=== PATIENT | female | born 1965 | race Caucasian/White ===

== ENCOUNTER → 2016-08-28 | Outpatient (CLI) | payer BC ==
--- NOTE | 2016-08-30 10:39 | MM ---
Reason for exam: screening (asymptomatic). Last mammogram was performed 2 years and 1 month ago. History: Patient is postmenopausal and has history of other cancer at age 40. Family history of breast cancer in aunt, breast cancer in sister at age 30, and breast cancer in mother. Took hormonal contraceptives for 5 years beginning at age 15. Physical Findings: A clinical breast exam by your physician is recommended on an annual basis and results should be correlated with mammographic findings. MG 3D Screening Mammo W/Cad Bilateral CC and MLO view(s) were taken. Prior study comparison: July 21, 2014, bilateral MG screening mammo w CAD. August 11, 2012, bilateral digital screening mammo w/CAD. There are scattered fibroglandular densities. There is no discrete abnormality. No significant changes when compared with prior studies. ASSESSMENT: Negative, BI-RAD 1 RECOMMENDATION: Routine screening mammogram of both breasts in 1 year.
== END | disposition home or self-care (01) ==
LOC: RADMAMWWP 14:59
PROVIDERS: ATTEND Family Medicine
DX: Z12.31 Encounter for screening mammogram for malignant neoplasm of breast (principal)
CPT/HCPCS: 77063; G0202

== ENCOUNTER → 2018-08-09 | Outpatient (CLI) | payer BC ==
[2018-08-09 16:58] LABS: ALT 58 U/L (8-44); AST 29 U/L (13-35); Albumin/Globulin Ratio 2.14 (1.60-3.17); Alkaline Phosphatase 102 U/L (41-126); Bilirubin, Conjugated <0.20 mg/dL (0.20-0.40); Globulin 2.1 g/dL (1.6-3.3); Total Bilirubin 0.6 mg/dL (0.2-1.2); Total Protein 6.6 g/dL (6.2-8.2)
== END ==
LOC: LABWHC1 09:17
PROVIDERS: ATTEND Family Medicine
DX: R79.89 Other specified abnormal findings of blood chemistry (principal)
CPT/HCPCS: 36415; 80076

== ENCOUNTER → 2018-11-18 | Outpatient (CLI) | payer BC ==
--- NOTE | 2018-11-20 12:23 | MM ---
Reason for exam: screening (asymptomatic). Last mammogram was performed 2 years and 3 months ago. History: Patient is postmenopausal and has history of other cancer at age 40. Family history of breast cancer in aunt, breast cancer in sister at age 30, and breast cancer in mother. Took hormonal contraceptives for 5 years beginning at age 15. Physical Findings: A clinical breast exam by your physician is recommended on an annual basis and results should be correlated with mammographic findings. MG Screening Mammo w CAD Bilateral CC and MLO view(s) were taken. Prior study comparison: August 28, 2016, bilateral MG 3d screening mammo w/cad. July 21, 2014, bilateral MG screening mammo w CAD. There are scattered fibroglandular densities. Benign appearing bilateral calcifications. No significant changes when compared with prior studies. ASSESSMENT: Benign, BI-RAD 2 RECOMMENDATION: Routine screening mammogram of both breasts in 1 year.
== END | disposition home or self-care (01) ==
LOC: RADMAMWWP 14:29
PROVIDERS: ATTEND Family Medicine
DX: Z12.31 Encounter for screening mammogram for malignant neoplasm of breast (principal); Z80.3 Family history of malignant neoplasm of breast
CPT/HCPCS: 77067

== ENCOUNTER → 2019-03-31 | Outpatient (CLI) | payer BC ==
[2019-03-31 10:33] LABS: Appearance,Urine Clear (Clear); Bilirubin,Urine Negative (Negative); Blood,Urine Trace (Negative); Color,Urine Yellow; Glucose,Urine (UA) Negative (Negative); Ketones,Urine Negative (Negative); Leukocyte Esterase,Urine Moderate (Negative); Mucus,Urine Rare /hpf; Nitrite,Urine Negative (Negative); PH, Urine 5.5 (5.0-8.0); Protein,Urine Negative (Negative); RBC,Urine 1 /hpf (0-5); Specific Gravity,Urine 1.016 (1.001-1.035); Squamous Epithelial Cell,Urine 3 /hpf (0-4); Urobilinogen,Urine <2.0 mg/dL (<2.0); WBC,Urine 2 /hpf (0-5)
[2019-03-31 10:51] LABS: HCT 42.6 % (34.0-46.0); HGB 14.3 gm/dL (11.4-16.0); MCHC 33.6 g/dL (31.0-37.0); MCV 95.1 fL (80.0-100.0); Platelet Count 391 k/uL (150-450); RBC 4.48 m/uL (3.80-5.40); RDW 12.1 % (11.5-15.5)
[2019-03-31 16:35] LABS: African American GFR (CKD) 118.9 (60.0-200.0); Albumin 4.6 g/dL (3.80-4.90); Albumin/Globulin Ratio 2.19 (1.60-3.17); Anion Gap 9.4 mmol/L (4.00-12.00); BUN/Creat Ratio 18.33 Ratio (12.00-20.00); Calcium 9.5 mg/dL (8.7-10.3); Carbon Dioxide 22.6 mmol/L (21.6-31.8); Globulin 2.1 g/dL (1.6-3.3); Non-African American GFR(CKD) 102.6 (60.0-200.0); Phosphorus 3.6 mg/dL (2.4-5.1); Potassium 4.1 mmol/L (3.5-5.5); Total Bilirubin 1.6 mg/dL (0.3-1.2); Total Protein 6.7 g/dL (6.2-8.2)
== END | disposition home or self-care (01) ==
LOC: LABWHC1 09:48
PROVIDERS: ATTEND Orthopaedic Surgery Sports Medicine
DX: M79.671 Pain in right foot (principal); S92.351A Displaced fracture of fifth metatarsal bone, right foot, initial encounter for closed fracture
CPT/HCPCS: 36415; 80053; 81001; 82306; 82310; 82652; 83970; 84100; 85027

== ENCOUNTER → 2019-11-18 | Outpatient (CLI) | payer BC ==
[~2019-11-18] MED LIST: DOBUTamine DRIP for NUC MED 500 MG in DEXTROSE/WATER 1 250ML.BAG IV ONE
--- NOTE | 2019-11-18 14:34 | ECHOS ---
STRESS ECHOCARDIOGRAM LUMASON: Vial INDICATIONS: MEDICATIONS: Metaprolol, Losartan, Lexapro, Nortryptaline, omperazole BASELINE HEART RATE: 64 BASELINE BLOOD PRESSURE: 117/73 MAXIMUM HEART RATE: 142 MAXIMUM BLOOD PRESSURE: 177/45 85% MPHR: 140 100% MPHR: 165 METS: MAXIMUM STAGE REACHED: 4 TOTAL EXERCISE TIME: CLINICAL INFORMATION: Baseline EKG shows sinus rhythm, normal axis, normal intervals. Patient was given intravenous dobutamine over a period of 12.5 minute as per protocol, did not have chest pain or diagnostic ST-segment depression. Patient also received 0.5 mg of atropine due to inability to attain target heart rate. Baseline echo shows normal left ventricular size, wall motion and systolic function. Post dobutamine infusion, there is normal hyperdynamic response of all segments of myocardium noted. CONCLUSION: 1. Negative stress test by EKG criteria. 2. Negative dobutamine stress echo. MMODL / IJN: [id number] /
== END | disposition home or self-care (01) ==
LOC: RADNMMAIN 08:56
PROVIDERS: ATTEND Family Medicine
DX: R07.9 Chest pain, unspecified (principal); I10 Essential (primary) hypertension
CPT/HCPCS: 93351; J1250; Q9950

== ENCOUNTER → 2019-12-23 | Outpatient (CLI) | payer BC ==
--- NOTE | 2019-12-23 14:58 | BD ---
EXAMINATION TYPE: Axial Bone Density DATE OF EXAM: 12/23/2019 COMPARISON: NONE CLINICAL HISTORY: 54 YR OLD FEMALE....ICD-10 CODE: M81.0 OSTERPOROSIS Height: 66 Weight: 216 FRAX RISK QUESTIONS: Family History (Parent hip fracture): NO FX History of Fracture in Adulthood: YES RISK FACTORS HISTORY OF: HX OF RT FOOT FX...2019 Family History of Osteoporosis: YES, FATHER Postmenopausal woman: YES, AT AGE 51....TOTAL HYST Hyperparathyroidism: NO Adrenal Insufficiency: NO MEDICATIONS: Thyroid Medications: YES, SYNTHROID FOR ABOUT 4-5 YRS NOW Additional Medications: BP MEDS, LEXAPRO, WELLBUTRIN, NORTRIPTYLINE FOR COLON, REFLUX MEDS, STATIN FO R CHOLESTEROL, VIT D, Additional History: IBS, HYPERTENSION, REFLUX, CHOLESTEROL EXAM MEASUREMENTS: Bone mineral densitometry was performed using the [employer] [facility]. Bone mineral density as measured about the Lumbar spine is: ----- L1-L4(G/cm2): 1.149 T Score Values are as follows: ----- L1: 0.2 ----- L2: 0.0 ----- L3: -0.2 ----- L4: -1.1 ----- L1-L4: -0.3 Bone mineral density FIRST BONE DENSITY SCAN.......BASELINE STUDY Bone mineral density about the R hip (g/cm2): 0.886 Bone mineral density about the L hip (g/cm2): 0.873 T Score values are as follows: -----R Neck: -1.6 -----L Neck: -1.4 -----R Total: -1.0 -----L Total: -1.1 Bone mineral density BASELINE STUDY FRAX%S: THERE IS A 11.1% CHANCE FOR A MAJOR OSTEOPOROTIC FX AND A 1.1% FOR HIP.....PROBABILITY FOR FX IN 10 YRS TIME IMPRESSION: Osteopenia (T Score between -2.5 and -1). There is slightly increased risk of fracture and the patient may be considered for treatment. Re-Screen 2-5 years. NOTE: T-SCORE=SD OF THE YOUNG ADULT MEAN.
--- NOTE | 2019-12-25 09:54 | MM ---
Reason for exam: screening (asymptomatic). Last mammogram was performed 1 year and 1 month ago. History: Patient is postmenopausal and has history of other cancer at age 40. Family history of breast cancer in mother, breast cancer in sister at age 30, and breast cancer in aunt. Took hormonal contraceptives for 5 years beginning at age 15. Physical Findings: A clinical breast exam by your physician is recommended on an annual basis and results should be correlated with mammographic findings. MG 3D Screening Mammo W/Cad Bilateral CC and MLO view(s) were taken. Prior study comparison: November 18, 2018, bilateral MG screening mammo w CAD. August 28, 2016, bilateral MG 3d screening mammo w/cad. No significant changes when compared with prior studies. ASSESSMENT: Benign, BI-RAD 2 RECOMMENDATION: Routine screening mammogram of both breasts in 1 year.
== END | disposition home or self-care (01) ==
LOC: RADMAMWWP 07:23
PROVIDERS: ATTEND Family Medicine
DX: Z12.31 Encounter for screening mammogram for malignant neoplasm of breast (principal); M85.80 Other specified disorders of bone density and structure, unspecified site; M81.0 Age-related osteoporosis without current pathological fracture; Z80.3 Family history of malignant neoplasm of breast
CPT/HCPCS: 77063; 77067; 77080

== ENCOUNTER → 2020-06-27 | Outpatient (CLI) | payer BC | END | disposition home or self-care (01) | LOC: LABWHC1 17:11 | PROVIDERS: ATTEND Emergency Medicine | DX: Z20.822 Contact with and (suspected) exposure to COVID-19 (principal) | CPT/HCPCS: U0003; C9803 ==

== ENCOUNTER 2020-11-30 07:44 | Day surgery (SDC) | payer BC ==
[2020-11-28 10:56] VITALS: BMI 33.5
[~2020-11-30 07:44] MED LIST changes: -DOBUTamine DRIP for NUC MED 500 MG in DEXTROSE/WATER 1 250ML.BAG IV ONE; +LACTATED RINGERS 1,000 ML IV SCH
[2020-11-30] MEDS ORDERED: LIDOCAINE 1% (10MG/ML) FOR IV START INTRADERMA ONE (08:20)
[2020-11-30 08:24] VITALS: RESP 16; TEMP 96.7
[2020-11-30] MEDS ORDERED: LIDOCAINE 1% INJ 10MG/ML (20 ML MDV) ONE (08:38)
[2020-11-30] MEDS ORDERED: PROPOFOL 10 MG/ML 20 ML VIAL IV ONE (08:38)
--- NOTE | 2020-11-30 09:03 | P.PCN ---
Date of Procedure: 11/30/20 Procedure(s) Performed: Brief history: Patient is a pleasant 55-year-old white female scheduled for an elective upper endoscopy as well as colonoscopy as a part of evaluation of GERD and screening for colorectal neoplasia Procedure performed: Esophagogastroduodenoscopy with biopsy Colonoscopy Preoperative diagnosis: GERD Screening for colon cancer [place] [facility] [place]: After informed consent was obtained from the patient was brought into the endoscopy unit and IV sedation was administered by anesthesia under continuous monitoring. Initially upper endoscopy was done. The Olympus GF 160 video endoscope was inserted inserted into the mouth and esophagus intubated without any difficulty and was gradually advanced into the stomach and duodenum and carefully examined. The bulb and second part of the duodenum appeared normal. The scope was then withdrawn into the stomach adequately insufflated with air and upon careful examination the antrum had mild gastritis and biopsies were done from this area. The body, cardia and fundus appeared normal. The scope was then withdrawn into the esophagus. The GE junction was located at 40 cm to the incisors. It appeared regular with no erythema erosions or ulcerations. Rest of the esophagus appeared normal. biopsies were done from the distal esophagus. Patient tolerated the procedure well. At this time the patient continued to remain sedation. Initial digital rectal examination was normal. Olympus CF 160 video colonoscope was then inserted into the rectum and gradually advanced to the cecum without any difficulty. Careful examination was performed as the scope was gradually being withdrawn. The prep was excellent. The cecum, ascending colon, transverse colon, descending colon, sigmoid colon and rectum appeared normal. Retroflexion was performed in the rectum and no lesions were noted. Patient tolerated the procedure well. Impression: 1. Upper endoscopy revealed mild antral gastritis but no evidence of esophagitis or [place]'s esophagus 2. Colonoscopy was within normal limits with no evidence of colitis or c olorectal neoplasia Recommendations: Findings of this examination were discussed with the patient as well as her family. She was advised to follow with the biopsy results. She will continue with omeprazole 20 mg twice daily and follow antrum reflux measures. She was advised to have a repeat screening colonoscopy in 10 years
[2020-11-30 09:24] VITALS: BP 125/68; PULSE 53
== END 2020-11-30 09:50 | disposition home or self-care (01) ==
LOC: ORWHC2ENDO 07:44
PROVIDERS: ATTEND Internal Medicine Gastroenterology
DX: Z12.11 Encounter for screening for malignant neoplasm of colon (principal); K21.9 Gastro-esophageal reflux disease without esophagitis; K29.50 Unspecified chronic gastritis without bleeding; K22.8 Other specified diseases of esophagus
CPT/HCPCS: 88305; 45378; 43239; J2001; J2704

== ENCOUNTER → 2020-12-20 | Outpatient (CLI) | payer BC ==
[2020-12-20 21:55] LABS: Gliadin AB IgA, Deaminated NEGATIVE (NEGATIVE); Gliadin AB IgA, Unit <0.2 U/mL; Gliadin AB IgG, Deaminated NEGATIVE (NEGATIVE)
== END | disposition home or self-care (01) ==
LOC: LABWHC1 11:01
PROVIDERS: ATTEND Internal Medicine Gastroenterology
DX: R10.13 Epigastric pain (principal)
CPT/HCPCS: 36415; 83516

== ENCOUNTER → 2021-01-13 | Outpatient (CLI) | payer BC ==
--- NOTE | 2021-01-17 10:25 | MM ---
Reason for exam: screening (asymptomatic). Last mammogram was performed 1 year and 1 month ago. History: Patient is postmenopausal and has history of other cancer at age 40. Family history of breast cancer in mother, breast cancer in sister at age 30, and breast cancer in aunt. Took hormonal contraceptives for 5 years beginning at age 15. Physical Findings: A clinical breast exam by your physician is recommended on an annual basis and results should be correlated with mammographic findings. MG 3D Screening Mammo W/Cad Bilateral CC and MLO view(s) were taken. XCCL view(s) were taken of the right breast. Prior study comparison: December 23, 2019, bilateral MG 3d screening mammo w/cad. August 28, 2016, bilateral MG 3d screening mammo w/cad. There are scattered fibroglandular densities. No significant changes when compared with prior studies. ASSESSMENT: Benign, BI-RAD 2 RECOMMENDATION: Routine screening mammogram of both breasts in 1 year.
== END | disposition home or self-care (01) ==
LOC: RADMAMWWP 14:38
PROVIDERS: ATTEND Family Medicine
DX: Z12.31 Encounter for screening mammogram for malignant neoplasm of breast (principal); Z78.0 Asymptomatic menopausal state; Z80.3 Family history of malignant neoplasm of breast
CPT/HCPCS: 77063; 77067

== ENCOUNTER 2022-01-27 11:34 | Emergency (ER) | payer BC ==
[2022-01-27 11:51] VITALS: TEMP 97.5
[2022-01-27] MEDS ORDERED: ALBUTEROL NEBULIZED 2.5 MG/3 ML INHALATION STA (12:09)
[2022-01-27] MEDS ORDERED: IPRATROPIUM 0.5 MG/2.5 ML NEBU INHALATION STA (12:09)
--- NOTE | 2022-01-27 12:16 | ED ---
General Adult HPI - General Chief complaint: Upper Respiratory Infection Stated complaint: SOB, congestion Time Seen by Provider: 01/27/22 11:58 Source: patient Mode of arrival: ambulatory Limitations: no limitations - History of Present Illness Initial comments: Dictation was produced using [employer] dictation software. please excuse any grammatical, word or spelling errors. Chief Complaint: 56-year-old female presents with URI symptoms for 7 days History of Present Illness: 56-year-old female she presents to the emergency department for URI symptoms 7 days. Last week she was seen by her primary care doctor. She has been prescribed Medrol Dosepak and azithromycin. Patient states her symptoms are not improving. Denies any constitutional symptoms. Patient does have shortness of breath and cough. Cough is nonproductive. Denies any COPD. No asthma. She does report recreational marijuana use. She doesn't have any chest pain. The ROS documented in this emergency department record has been reviewed and confirmed by me. Those systems with pertinent positive or negative responses have been documented in the HPI. All other systems are other negative and/or noncontributory. PHYSICAL EXAM: General Impression: Alert and oriented x3, not in acute distress HEENT: Normocephalic atraumatic, extra-ocular movements intact, pupils equal and reactive to light bilaterally, mucous membranes moist. Cardiovascular: Heart regular rate and rhythm Chest: Able to complete full sentences, diffuse lung wheezing Abdomen: abdomen soft, non-tender, non-distended, no organomegaly Musculoskeletal: Pulses present and equal in all extremities, no peripheral edema Motor: no focal deficits noted Neurological: CN II-XII grossly intact, no focal motor or sensory deficits noted Skin: Intact with no visualized rashes Psych: Normal affect and mood ED course: 56-year-old female presents emergency department for cough. She has had URI symptoms for the last 7 days. She has completed a course of azithromycin and is currently on the second half of her Medrol Dosepak. Patient is well-appearing at the bedside she does have wheezing with auscultation to the lungs. Patient does not have established history of COPD or asthma. Concern for acute bronchospastic event. Laboratory evaluation obtained. CBC, metabolic panel is unremarkable. For panel viral PCR is positive for RSV. Chest x-ray is nonacute. Patient given breathing treatment. She does report improvement of breathing treatment. Reevaluated at bedside at 3:10 PM on any stable medical condition. She is ready on Medrol Dosepak. Patient be given some nebulizer albuterol to take at home. Patient agreeable for discharge. Advised follow-up with primary care doctor. - Related Data Home Medications Medication Instructions Recorded Confirmed Atorvastatin [Lipitor] 20 mg PO BID 11/28/20 11/28/20 Cetirizine HCl [Zyrtec] 10 mg PO DAILY PRN 11/28/20 11/28/20 Docusate Sodium [Dok] 200 mg PO HS 11/28/20 11/28/20 Ergocalciferol [Vitamin D2 (1250 1,250 mcg PO MO 11/28/20 11/28/20 Mcg = 49036 Iu)] Escitalopram [Lexapro] 10 mg PO DAILY 11/28/20 11/28/20 Ibuprofen [Motrin Ib] 400 mg PO Q8H PRN 11/28/20 11/28/20 Levothyroxine Sodium [Synthroid] 25 mcg PO DAILY 11/28/20 11/28/20 Losartan [Cozaar] 25 mg PO HS 11/28/20 11/28/20 Metoprolol Tartrate [Lopressor] 25 mg PO BID 11/28/20 11/28/20 Nortriptyline [Pamelor] 50 mg PO DAILY 11/28/20 11/28/20 Omeprazole [PriLOSEC] 20 mg PO AC-BID 11/28/20 11/28/20 buPROPion XL [Wellbutrin XL] 150 mg PO DAILY 11/28/20 11/28/20 busPIRone HCL [Buspar] 7.5 mg PO BID 11/28/20 11/28/20 lysine HCL [l-Lysine] 1,000 mg PO DAILY PRN 11/28/20 11/28/20 Previous Rx's Medication Instructions Recorded Albuterol Nebulized (Conc) 2.5 mg INHALATION Q6H PRN 6 Days 01/27/22 [Ventolin Nebulized (Conc)] #75 ml Allergies Allergy/AdvReac Type Severity Reaction Status Date / Time CYMBALTA Allergy Confusion, Uncoded 01/27/22 11:50 elevated HR, couldn't sit up bandaids AdvReac "if on too Uncoded 01/27/22 11:50 long, will peel skin off" Review of Systems ROS Statement: Those systems with pertinent positive or pertinent negative responses have been documented in the HPI. ROS Other: All systems not noted in ROS Statement are negative. Past Medical History Past Medical History: Asthma, Cancer, GERD/Reflux, Hyperlipidemia, Hypertension, Skin Disorder, Thyroid Disorder Additional Past Medical History / Comment(s): Hx Heart murmur, seasonal asthma. Skin cancer melanoma. IBS, c/o increased GERD, constipation. Eczema. History of Any Multi-Drug Resistant Organisms: None Reported Past Surgical History: Hysterectomy, Orthopedic Surgery, Tubal Ligation Additional Past Surgical History / Comment(s): Partial hysterectomy. Rt foot surg, has 1 screw. Colonoscopy, EGD. Past Anesthesia/Blood Transfusion Reactions: Motion Sickness Additional Past Anesthesia/Blood Transfusion Reaction / Comment(s): After TL throat swelled up, taken to X-ray. Motion sickness as child. Past Psychological History: Anxiety, Depression, Panic Disorder Smoking Status: Former smoker Past Alcohol Use History: None Reported Past Drug Use History: Marijuana - Past Family History Mother Sister(s) Family Medical History: Cancer Additional Family Medical History / Comment(s): breast cancer for both General Exam Limitations: no limitations Course Vital Signs 01/27/22 01/27/22 01/27/22 11:48 12:22 12:35 Temperature 97.5 F L Pulse Rate 96 86 88 Respiratory 20 18 18 Rate Blood Pressure 147/92 O2 Sat by Pulse 99 Oximetry Medical Decision Making - Lab Data Result diagrams: 01/27/22 12:50 01/27/22 12:50 Lab Results 01/27/22 01/27/22 01/27/22 Range/Units 12:50 12:50 12:50 WBC 7.8 (3.8-10.6) k/uL RBC 5.03 (3.80-5.40) m/uL Hgb 16.3 H (11.4-16.0) gm/dL Hct 46.3 H (34.0-46.0) % MCV 92.1 (80.0-100.0) fL MCH 32.4 (25.0-35.0) pg MCHC 35.2 (31.0-37.0) g/dL RDW 12.2 (11.5-15.5) % Plt Count 293 (150-450) k/uL MPV 7.5 Neutrophils % 59 % Lymphocytes % 33 % Monocytes % 5 % Eosinophils % 1 % Basophils % 1 % Neutrophils # 4.6 (1.3-7.7) k/uL Lymphocytes # 2.6 (1.0-4.8) k/uL Monocytes # 0.4 (0-1.0) k/uL Eosinophils # 0.1 (0-0.7) k/uL Basophils # 0.1 (0-0.2) k/uL Sodium 141 (137-145) mmol/L Potassium 3.3 L (3.5-5.1) mmol/L Chloride 105 (98-107) mmol/L Carbon Dioxide 22 (22-30) mmol/L Anion Gap 14 mmol/L BUN 15 (7-17) mg/dL Creatinine 0.70 (0.52-1.04) mg/dL Est GFR (CKD-EPI)AfAm >90 (>60 ml/min/1.73 sqM) Est GFR (CKD-EPI)NonAf >90 (>60 ml/min/1.73 sqM) Glucose 131 H (74-99) mg/dL Calcium 9.5 (8.4-10.2) mg/dL NT-Pro-B Natriuret Pep pg/mL Influenza Type A (PCR) Not Detected (Not Detectd) Influenza Type B (PCR) Not Detected (Not Detectd) RSV (PCR) Detected A (Not Detectd) SARS-CoV-2 (PCR) Not Detected (Not Detectd) 01/27/22 Range/Units 12:50 WBC (3.8-10.6) k/uL RBC (3.80-5.40) m/uL Hgb (11.4-16.0) gm/dL Hct (34.0-46.0) % MCV (80.0-100.0) fL MCH (25.0-35.0) pg MCHC (31.0-37.0) g/dL RDW (11.5-15.5) % Plt Count (150-450) k/uL MPV Neutrophils % % Lymphocytes % % Monocytes % % Eosinophils % % Basophils % % Neutrophils # (1.3-7.7) k/uL Lymphocytes # (1.0-4.8) k/uL Monocytes # (0-1.0) k/uL Eosinophils # (0-0.7) k/uL Basophils # (0-0.2) k/uL Sodium (137-145) mmol/L Potassium (3.5-5.1) mmol/L Chloride (98-107) mmol/L Carbon Dioxide (22-30) mmol/L Anion Gap mmol/L BUN (7-17) mg/dL Creatinine (0.52-1.04) mg/dL Est GFR (CKD-EPI)AfAm (>60 ml/min/1.73 sqM) Est GFR (CKD-EPI)NonAf (>60 ml/min/1.73 sqM) Glucose (74-99) mg/dL Calcium (8.4-10.2) mg/dL NT-Pro-B Natriuret Pep 57 pg/mL Influenza Type A (PCR) (Not Detectd) Influenza Type B (PCR) (Not Detectd) RSV (PCR) (Not Detectd) SARS-CoV-2 (PCR) (Not Detectd) Disposition Clinical Impression: RSV (acute bronchiolitis due to respiratory syncytial virus) Disposition: HOME SELF-CARE Condition: Fair Instructions (If sedation given, give patient instructions): Respiratory Syncytial Virus (ED) Prescriptions: Albuterol Nebulized (Conc) [Ventolin Nebulized (Conc)] 2.5 mg INHALATION Q6H PRN 6 Days #75 ml PRN Reason: Wheezing Is patient prescribed a controlled substance at d/c from ED?: No Referrals: Karen Fleming MD [Primary Care Provider] - 1-2 days Time of Disposition: 15:13
[2022-01-27 12:26] VITALS: RESP 18
[2022-01-27 13:06] LABS: Basophils # (A) 0.1 k/uL (0-0.2); Basophils % (A) 1 %; Eosinophils # (A) 0.1 k/uL (0-0.7); Eosinophils % (A) 1 %; HCT 46.3 % (34.0-46.0); HGB 16.3 gm/dL (11.4-16.0); Lymphocytes # (A) 2.6 k/uL (1.0-4.8); Lymphocytes % (A) 33 %; MCH 32.4 pg (25.0-35.0); MCHC 35.2 g/dL (31.0-37.0); MCV 92.1 fL (80.0-100.0); Mean Platelet Volume 7.5; Monocytes # (A) 0.4 k/uL (0-1.0); Monocytes % (A) 5 %; Neutrophils # (A) 4.6 k/uL (1.3-7.7); Neutrophils % (A) 59 %; Platelet Count 293 k/uL (150-450); RBC 5.03 m/uL (3.80-5.40); RDW 12.2 % (11.5-15.5); WBC 7.8 k/uL (3.8-10.6)
--- NOTE | 2022-01-27 13:09 | XR ---
EXAMINATION TYPE: XR chest 2V DATE OF EXAM: 01/27/2022 COMPARISON: Chest x-ray June 09, 2021 HISTORY: Cough and wheeze and congestion. TECHNIQUE: Frontal and lateral views of the chest are obtained. FINDINGS: Mild underlying emphysematous change. Redemonstrated. There is no suspicious new focal air space opacity, pleural effusion, or pneumothorax seen. The cardiac silhouette size is stable and wi thin normal limits. The osseous structures are intact. IMPRESSION: No acute cardiopulmonary process. No significant change from prior.
[2022-01-27 13:14] LABS: African American GFR (CKD) >90 (>60 ml/min/1.73 sqM); Anion Gap 14 mmol/L; Blood Urea Nitrogen 15 mg/dL (7-17); Calcium 9.5 mg/dL (8.4-10.2); Carbon Dioxide 22 mmol/L (22-30); Chloride 105 mmol/L (98-107); Glucose 131 mg/dL (74-99); Non-African American GFR(CKD) >90 (>60 ml/min/1.73 sqM); Potassium 3.3 mmol/L (3.5-5.1); Sodium 141 mmol/L (137-145)
[2022-01-27 15:29] VITALS: BP 143/66; PULSE 83
== END 2022-01-27 15:33 | disposition home or self-care (01) ==
LOC: EC 11:34
DX: J21.0 Acute bronchiolitis due to respiratory syncytial virus (principal); J45.909 Unspecified asthma, uncomplicated; E78.5 Hyperlipidemia, unspecified; I10 Essential (primary) hypertension; K21.9 Gastro-esophageal reflux disease without esophagitis; Z79.899 Other long term (current) drug therapy; Z87.891 Personal history of nicotine dependence; Z20.822 Contact with and (suspected) exposure to COVID-19; Z88.8 Allergy status to other drugs, medicaments and biological substances
CPT/HCPCS: 36415; 71046; 80048; 83880; 85025; 87636; 94640; 99285

== ENCOUNTER 2022-01-31 04:44 | Emergency (ER) | payer BC ==
[2022-01-31] MEDS ORDERED: SODIUM CHLORIDE 0.9% 1,000 ML IV STA (05:36)
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
[2022-01-31 06:05] LABS: Basophils # (A) 0.1 k/uL (0-0.2); Basophils % (A) 1 %; Eosinophils # (A) 0.2 k/uL (0-0.7); Eosinophils % (A) 2 %; HCT 46.3 % (34.0-46.0); HGB 16.1 gm/dL (11.4-16.0); Lymphocytes # (A) 3.1 k/uL (1.0-4.8); Lymphocytes % (A) 42 %; MCH 31.9 pg (25.0-35.0); MCHC 34.8 g/dL (31.0-37.0); MCV 91.8 fL (80.0-100.0); Mean Platelet Volume 7.8; Monocytes # (A) 0.3 k/uL (0-1.0); Monocytes % (A) 4 %; Neutrophils # (A) 3.5 k/uL (1.3-7.7); Neutrophils % (A) 47 %; Platelet Count 381 k/uL (150-450); RBC 5.05 m/uL (3.80-5.40); RDW 12.2 % (11.5-15.5); WBC 7.4 k/uL (3.8-10.6)
[2022-01-31 06:15] LABS: ALT 52 U/L (4-34); AST 34 U/L (14-36); African American GFR (CKD) >90 (>60 ml/min/1.73 sqM); Albumin 4.2 g/dL (3.5-5.0); Alkaline Phosphatase 101 U/L (38-126); Anion Gap 12 mmol/L; Blood Urea Nitrogen 13 mg/dL (7-17); Calcium 9.2 mg/dL (8.4-10.2); Carbon Dioxide 22 mmol/L (22-30); Chloride 105 mmol/L (98-107); Glucose 116 mg/dL (74-99); Magnesium 1.5 mg/dL (1.6-2.3); Non-African American GFR(CKD) >90 (>60 ml/min/1.73 sqM); Potassium 3.7 mmol/L (3.5-5.1); Sodium 139 mmol/L (137-145); Total Bilirubin 1.6 mg/dL (0.2-1.3)
[2022-01-31 06:18] LABS: Partial Thromboplastin Time 24.1 sec (22.0-30.0); Prothrombin Time 11.2 sec (9.0-12.0)
[2022-01-31 06:19] LABS: Appearance,Urine Clear (Clear); Bilirubin,Urine Negative (Negative); Blood,Urine Negative (Negative); Color,Urine Yellow; Glucose,Urine (UA) Negative (Negative); Ketones,Urine Negative (Negative); Leukocyte Esterase,Urine Small (Negative); Mucus,Urine Occasional /hpf; Nitrite,Urine Negative (Negative); PH, Urine 5.5 (5.0-8.0); Protein,Urine Negative (Negative); RBC,Urine <1 /hpf (0-5); Specific Gravity,Urine 1.017 (1.001-1.035); Squamous Epithelial Cell,Urine 1 /hpf (0-4); Urobilinogen,Urine <2.0 mg/dL (<2.0); WBC,Urine 2 /hpf (0-5)
[2022-01-31] MEDS: MAGNESIUM SULFATE-D5W PMX 1 GM in DEXTROSE/WATER 1 100ML.BAG IVPB SCH ×2 (06:53→08:56)
[2022-01-31 09:06] VITALS: BP 191/87; PULSE 71; RESP 18; TEMP 97.5
== END 2022-01-31 09:06 | disposition home or self-care (01) ==
LOC: EC 04:44
DX: J40 Bronchitis, not specified as acute or chronic (principal); E83.42 Hypomagnesemia; I10 Essential (primary) hypertension; K21.9 Gastro-esophageal reflux disease without esophagitis; E78.5 Hyperlipidemia, unspecified; E03.9 Hypothyroidism, unspecified; F41.9 Anxiety disorder, unspecified; F32.A Depression, unspecified; Z87.891 Personal history of nicotine dependence; F12.90 Cannabis use, unspecified, uncomplicated; Z79.51 Long term (current) use of inhaled steroids; Z79.890 Hormone replacement therapy; Z79.83 Long term (current) use of bisphosphonates; Z79.899 Other long term (current) drug therapy; Z88.8 Allergy status to other drugs, medicaments and biological substances
CPT/HCPCS: 36415; 93005; 80053; 84443; 83605; 83735; 84484; 85025; 85610; 85730; 81001; 99284; 96360; J3475

== ENCOUNTER → 2022-04-27 | Outpatient (CLI) | payer BC ==
--- NOTE | 2022-04-30 08:56 | MM ---
Reason for Exam: Screening (asymptomatic). Last mammogram was performed 1 year(s) and 3 month(s) ago. Patient History: Menarche at age 10. First Full-Term at age 18. Left ovary removed at age 50. Right ovary removed at age 50. Hysterectomy at age 50. Postmenopausal. Other cancer, age 40. Hormonal Contraceptives for 5 years from age 15 until age 22. Maternal aunt had breast cancer. Sister had breast cancer, age 30. Mother had breast cancer. Risk Values: Steffany 5 year model risk: 7.0%. NCI Lifetime model risk: 34.1%. Prior Study Comparison: 11/18/2018 Bilateral Screening Mammogram, [facility]. 12/23/2019 Bilateral Screening Mammogram, [facility]. 01/13/2021 Bilateral Screening Mammogram, [facility]. Tissue Density: The breast tissue is heterogeneously dense. This may lower the sensitivity of mammography. Findings: Analyzed By CAD. There is no suspicious group of microcalcifications or new suspicious mass in either breast. Overall Assessment: Negative, BI-RAD 1 Management: Screening Mammogram of both breasts in 1 year. A clinical breast exam by your physician is recommended on an annual basis and results should be correlated with mammographic findings. Electronically signed and approved by: Murtaza Rossi D.O.
== END | disposition home or self-care (01) ==
LOC: RADMAMWWP 14:38
PROVIDERS: ATTEND Family Medicine
DX: Z12.31 Encounter for screening mammogram for malignant neoplasm of breast (principal); Z78.0 Asymptomatic menopausal state; Z80.3 Family history of malignant neoplasm of breast
CPT/HCPCS: 77063; 77067

== ENCOUNTER 2022-06-25 04:44 | Emergency (ER) | payer BC ==
--- NOTE | 2022-06-25 05:20 | ED ---
General Adult HPI - General Chief complaint: Arrhythmia/Palpitations Stated complaint: Heart Palpitations, High Blood Pressure Time Seen by Provider: 06/25/22 05:02 Source: patient Mode of arrival: ambulatory Limitations: no limitations - History of Present Illness Initial comments: This is a 57-year-old female with a past medical history including "irregular heartbeat" as well as hypertension presents emergency department for palpitations. The patient did state that she woke up today feeling that her heart was beating out of her chest and she was alerted by her FitBit that she had an irregular heartbeat. Because of the sensation of palpitations and the alert, the patient came to the emergency department for further evaluation. On arrival, the patient denied any shortness of breath, chest pain or palpitations currently. The patient did state that she had episodes similar to this in the past where she was diagnosed with a "irregular heartbeat" but denied of any specific diagnosis. The patient denied any acute changes in her diet or any other changes noted. The patient was resting in bed comfortably without any further acute pain or distress. - Related Data Home Medications Medication Instructions Recorded Confirmed Atorvastatin [Lipitor] 20 mg PO BID 11/28/20 11/28/20 Cetirizine HCl [Zyrtec] 10 mg PO DAILY PRN 11/28/20 11/28/20 Docusate Sodium [Dok] 200 mg PO HS 11/28/20 11/28/20 Ergocalciferol [Vitamin D2 (1250 1,250 mcg PO MO 11/28/20 11/28/20 Mcg = 85348 Iu)] Escitalopram [Lexapro] 10 mg PO DAILY 11/28/20 11/28/20 Ibuprofen [Motrin Ib] 400 mg PO Q8H PRN 11/28/20 11/28/20 Levothyroxine Sodium [Synthroid] 25 mcg PO DAILY 11/28/20 11/28/20 Losartan [Cozaar] 25 mg PO HS 11/28/20 11/28/20 Metoprolol Tartrate [Lopressor] 25 mg PO BID 11/28/20 11/28/20 Nortriptyline [Pamelor] 50 mg PO DAILY 11/28/20 11/28/20 Omeprazole [PriLOSEC] 20 mg PO AC-BID 11/28/20 11/28/20 buPROPion XL [Wellbutrin XL] 150 mg PO DAILY 11/28/20 11/28/20 busPIRone HCL [Buspar] 7.5 mg PO BID 11/28/20 11/28/20 lysine HCL [l-Lysine] 1,000 mg PO DAILY PRN 11/28/20 11/28/20 Previous Rx's Medication Instructions Recorded Albuterol Nebulized (Conc) 2.5 mg INHALATION Q6H PRN 6 Days 01/27/22 [Ventolin Nebulized (Conc)] #75 ml Allergies Allergy/AdvReac Type Severity Reaction Status Date / Time CYMBALTA Allergy Confusion, Uncoded 06/25/22 04:55 elevated HR, couldn't sit up bandaids AdvReac "if on too Uncoded 06/25/22 04:55 long, will peel skin off" Review of Systems ROS Statement: Those systems with pertinent positive or pertinent negative responses have been documented in the HPI. ROS Other: All systems not noted in ROS Statement are negative. Past Medical History Past Medical History: Asthma, Cancer, GERD/Reflux, Hyperlipidemia, Hypertension, Skin Disorder, Thyroid Disorder Additional Past Medical History / Comment(s): Hx Heart murmur, seasonal asthma. Skin cancer melanoma. IBS, c/o increased GERD, constipation. Eczema. History of Any Multi-Drug Resistant Organisms: None Reported Past Surgical History: Hysterectomy, Orthopedic Surgery, Tubal Ligation Additional Past Surgical History / Comment(s): Partial hysterectomy. Rt foot surg, has 1 screw. Colonoscopy, EGD. Past Anesthesia/Blood Transfusion Reactions: Motion Sickness Additional Past Anesthesia/Blood Transfusion Reaction / Comment(s): After TL throat swelled up, taken to X-ray. Motion sickness as child. Past Psychological History: Anxiety, Depression, Panic Disorder Smoking Status: Former smoker Past Alcohol Use History: None Reported Past Drug Use History: Marijuana - Past Family History Mother Sister(s) Family Medical History: Cancer Additional Family Medical History / Comment(s): breast cancer for both General Exam Limitations: no limitations General appearance: alert, in no apparent distress Head exam: Present: atraumatic, normocephalic, normal inspection Eye exam: Present: normal appearance, PERRL Pupils: Present: normal accommodation ENT exam: Present: normal exam, normal oropharynx, mucous membranes moist Neck exam: Present: normal inspection, full ROM Respiratory exam: Present: normal lung sounds bilaterally Cardiovascular Exam: Present: regular rate, normal rhythm, normal heart sounds GI/Abdominal exam: Present: soft, normal bowel sounds Extremities exam: Present: normal inspection, full ROM Back exam: Present: normal inspection, full ROM Neurological exam: Present: alert, oriented X3, CN II-XII intact Psychiatric exam: Present: normal affect, normal mood Skin exam: Present: warm, dry Course Vital Signs 06/25/22 06/25/22 06/25/22 04:55 05:20 06:00 Temperature 97.4 F L Pulse Rate 136 H 53 L 60 Respiratory 16 8 L 16 Rate Blood Pressure 126/76 153/62 125/50 O2 Sat by Pulse 100 100 99 Oximetry 06/25/22 06/25/22 07:00 08:42 Temperature 97.7 F Pulse Rate 51 L 54 L Respiratory 16 18 Rate Blood Pressure 116/65 141/66 O2 Sat by Pulse 97 98 Oximetry EKG Findings - EKG Comments: EKG Findings:: An EKG was obtained and was interpreted by myself showing a rate of 60, MD interval 174, QRS duration of 90 and QTC of 414. This EKG showed a normal sinus rhythm with no ST segment elevation or depression noted. Medical Decision Making - Medical Decision Making Was pt. sent in by a medical professional or institution (, PA, [employer], urgent care, hospital, or shelter...) When possible be specific @ -No Did you speak to anyone other than the patient for history (EMS, parent, family, police, friend...)? What history was obtained from this source @ -No Did you review nursing and triage notes (agree or disagree)? Why? @ -I reviewed and agree with nursing and triage notes Were old charts reviewed (outside hosp., previous admission, EMS record, old EKG, old radiological studies, urgent care reports/EKG's, shelter records)? Report findings @ -No old charts were reviewed Differential Diagnosis (chest pain, altered mental status, abdominal pain women, abdominal pain men, vaginal bleeding, weakness, fever, dyspnea, syncope, headache, dizziness, GI bleed, back pain, seizure, CVA, palpatations, mental health)? @ -SVT, palpitations, ACS EKG interpreted by me (3pts min.). @ -As above X-rays interpreted by me (1pt min.). @ -Chest x-ray was obtained and was interpreted by myself showing no acute process. CT interpreted by me (1pt min.). @ -None done U/S interpreted by me (1pt. min.). @ -None done What testing was considered but not performed or refused? (CT, X-rays, U/S, labs)? Why? @ -None What meds were considered but not given or refused? Why? @ -None Did you discuss the management of the patient with other professionals (professionals i.e. , PA, [employer], lab, RT, psych nurse, community mental health social worker, architecture analyst, teacher, eeo officer, skilled nursing case manager)? Give summary @ -No Was smoking cessation discussed for >3mins.? @ -No Was critical care preformed (if so, how long)? @ -No Were there social determinants of health that impacted care today? How? (Homelessness, low income, unemployed, alcoholism, drug addiction, transportation, low edu. Level, literacy, decrease access to med. care, longterm, rehab)? @ -No Was there de-escalation of care discussed even if they declined (Discuss DNR or withdrawal of care, Hospice)? DNR status @ -No What co-morbidities impacted this encounter? (DM, HTN, Smoking, COPD, CAD, Cancer, CVA, ARF, Chemo, Hep., AIDS, mental health diagnosis, sleep apnea, morbid obesity)? @ -Hypertension, "irregular heartbeat" Was patient admitted / discharged? Hospital course, mention meds given and route, prescriptions, significant lab abnormalities, going to OR and other pertinent info. @ -The patient was seen and evaluated in emergency department. Physical exam, the patient was resting in bed without any acute distress. Vital signs admission were stable without any acute distress and the patient had a normal h eart beat. The patient denied of any symptoms on my evaluation. Laboratory, chest x-ray and EKG were obtained. All laboratory workup and chest x-ray and EKG were within normal limits and negative. The patient likely had palpitations, NOS and was stable for discharge home. 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 The patient was agreeable to this and all her questions were answered. The patient was discharged home in stable condition. Undiagnosed new problem with uncertain prognosis? @ -No Drug Therapy requiring intensive monitoring for toxicity (Heparin, Nitro, Insulin, Cardizem)? @ -No Were any procedures done? @ -No Diagnosis/symptom? @ -Palpitations, NOS Acute, or Chronic, or Acute on Chronic? @ -Acute Uncomplicated (without systemic symptoms) or Complicated (systemic symptoms)? @ -Uncomplicated Side effects of treatment? @ -No Exacerbation, Progression, or Severe Exacerbation? @ -No Poses a threat to life or bodily function? How? (Chest pain, USA, LA, pneumonia, PE, COPD, DKA, ARF, appy, cholecystitis, CVA, Diverticulitis, Homicidal, Suicidal, threat to staff... and all critical care pts) @ -No - Lab Data Result diagrams: 06/25/22 05:19 06/25/22 05:19 Lab Results 06/25/22 06/25/22 06/25/22 Range/Units 05:19 05:19 05:19 WBC 5.4 (3.8-10.6) k/uL RBC 4.49 (3.80-5.40) m/uL Hgb 14.4 (11.4-16.0) gm/dL Hct 43.2 (34.0-46.0) % MCV 96.2 (80.0-100.0) fL MCH 32.0 (25.0-35.0) pg MCHC 33.3 (31.0-37.0) g/dL RDW 12.1 (11.5-15.5) % Plt Count 288 (150-450) k/uL MPV 7.2 Neutrophils % 59 % Lymphocytes % 30 % Monocytes % 5 % Eosinophils % 3 % Basophils % 1 % Neutrophils # 3.1 (1.3-7.7) k/uL Lymphocytes # 1.6 (1.0-4.8) k/uL Monocytes # 0.3 (0-1.0) k/uL Eosinophils # 0.2 (0-0.7) k/uL Basophils # 0.0 (0-0.2) k/uL PT 10.9 (9.0-12.0) sec INR 1.0 (<1.2) APTT 24.8 (22.0-30.0) sec Sodium 140 (137-145) mmol/L Potassium 4.0 (3.5-5.1) mmol/L Chloride 109 H (98-107) mmol/L Carbon Dioxide 26 (22-30) mmol/L Anion Gap 5 mmol/L BUN 13 (7-17) mg/dL Creatinine 0.68 (0.52-1.04) mg/dL Est GFR (CKD-EPI)AfAm >90 (>60 ml/min/1.73 sqM) Est GFR (CKD-EPI)NonAf >90 (>60 ml/min/1.73 sqM) Glucose 88 (74-99) mg/dL Calcium 9.4 (8.4-10.2) mg/dL Magnesium 1.6 (1.6-2.3) mg/dL Total Bilirubin 1.4 H (0.2-1.3) mg/dL AST 29 (14-36) U/L ALT 47 H (4-34) U/L Alkaline Phosphatase 84 (38-126) U/L Troponin I (0.000-0.034) ng/mL NT-Pro-B Natriuret Pep pg/mL Total Protein 7.0 (6.3-8.2) g/dL Albumin 4.3 (3.5-5.0) g/dL 06/25/22 06/25/22 Range/Units 05:19 05:19 WBC (3.8-10.6) k/uL RBC (3.80-5.40) m/uL Hgb (11.4-16.0) gm/dL Hct (34.0-46.0) % MCV (80.0-100.0) fL MCH (25.0-35.0) pg MCHC (31.0-37.0) g/dL RDW (11.5-15.5) % Plt Count (150-450) k/uL MPV Neutrophils % % Lymphocytes % % Monocytes % % Eosinophils % % Basophils % % Neutrophils # (1.3-7.7) k/uL Lymphocytes # (1.0-4.8) k/uL Monocytes # (0-1.0) k/uL Eosinophils # (0-0.7) k/uL Basophils # (0-0.2) k/uL PT (9.0-12.0) sec INR (<1.2) APTT (22.0-30.0) sec Sodium (137-145) mmol/L Potassium (3.5-5.1) mmol/L Chloride (98-107) mmol/L Carbon Dioxide (22-30) mmol/L Anion Gap mmol/L BUN (7-17) mg/dL Creatinine (0.52-1.04) mg/dL Est GFR (CKD-EPI)AfAm (>60 ml/min/1.73 sqM) Est GFR (CKD-EPI)NonAf (>60 ml/min/1.73 sqM) Glucose (74-99) mg/dL Calcium (8.4-10.2) mg/dL Magnesium (1.6-2.3) mg/dL Total Bilirubin (0.2-1.3) mg/dL AST (14-36) U/L ALT (4-34) U/L Alkaline Phosphatase (38-126) U/L Troponin I <0.012 (0.000-0.034) ng/mL NT-Pro-B Natriuret Pep 139 pg/mL Total Protein (6.3-8.2) g/dL Albumin (3.5-5.0) g/dL Disposition Clinical Impression: Palpitations Disposition: HOME SELF-CARE Condition: Stable Instructions (If sedation given, give patient instructions): Heart Palpitations (ED) Is patient prescribed a controlled substance at d/c from ED?: No Referrals: Karen Fleming MD [Primary Care Provider] - 1-2 days Zane Arrington MD [STAFF PHYSICIAN] - 1-2 days Time of Disposition: 06:40
--- NOTE | 2022-06-25 05:34 | XR ---
EXAMINATION TYPE: XR chest 2V DATE OF EXAM: 06/25/2022 COMPARISON: 01/27/2022 HISTORY: Chest pain TECHNIQUE: FINDINGS: Heart is normal. Lungs are clear of infiltrate. No heart failure. There are no hilar masses . The bony thorax is intact. There are chest leads. IMPRESSION: No active cardiopulmonary disease. Normal heart. No change
[2022-06-25 05:56] LABS: Basophils % (A) 1 %; Eosinophils # (A) 0.2 k/uL (0-0.7); Eosinophils % (A) 3 %; HCT 43.2 % (34.0-46.0); HGB 14.4 gm/dL (11.4-16.0); Lymphocytes # (A) 1.6 k/uL (1.0-4.8); Lymphocytes % (A) 30 %; MCHC 33.3 g/dL (31.0-37.0); MCV 96.2 fL (80.0-100.0); Mean Platelet Volume 7.2; Monocytes # (A) 0.3 k/uL (0-1.0); Monocytes % (A) 5 %; Neutrophils # (A) 3.1 k/uL (1.3-7.7); Neutrophils % (A) 59 %; Platelet Count 288 k/uL (150-450); RBC 4.49 m/uL (3.80-5.40); RDW 12.1 % (11.5-15.5); WBC 5.4 k/uL (3.8-10.6)
[2022-06-25 06:05] LABS: Partial Thromboplastin Time 24.8 sec (22.0-30.0); Prothrombin Time 10.9 sec (9.0-12.0)
[2022-06-25 06:45] LABS: ALT 47 U/L (4-34); AST 29 U/L (14-36); African American GFR (CKD) >90 (>60 ml/min/1.73 sqM); Albumin 4.3 g/dL (3.5-5.0); Alkaline Phosphatase 84 U/L (38-126); Anion Gap 5 mmol/L; Blood Urea Nitrogen 13 mg/dL (7-17); Calcium 9.4 mg/dL (8.4-10.2); Carbon Dioxide 26 mmol/L (22-30); Chloride 109 mmol/L (98-107); Glucose 88 mg/dL (74-99); Magnesium 1.6 mg/dL (1.6-2.3); Non-African American GFR(CKD) >90 (>60 ml/min/1.73 sqM); Sodium 140 mmol/L (137-145); Total Bilirubin 1.4 mg/dL (0.2-1.3)
[2022-06-25 08:49] VITALS: BP 141/66; PULSE 54; RESP 18; TEMP 97.7
== END 2022-06-25 08:49 | disposition home or self-care (01) ==
LOC: EC 04:44
DX: R00.2 Palpitations (principal); I10 Essential (primary) hypertension; E78.5 Hyperlipidemia, unspecified; J45.909 Unspecified asthma, uncomplicated; K21.9 Gastro-esophageal reflux disease without esophagitis; E07.9 Disorder of thyroid, unspecified; F32.A Depression, unspecified; F41.9 Anxiety disorder, unspecified; F12.90 Cannabis use, unspecified, uncomplicated; Z79.890 Hormone replacement therapy; Z79.899 Other long term (current) drug therapy; Z87.891 Personal history of nicotine dependence; Z88.8 Allergy status to other drugs, medicaments and biological substances
CPT/HCPCS: 36415; 71046; 80053; 83735; 83880; 84484; 85025; 85610; 85730; 93005; 99285

== ENCOUNTER 2022-08-24 06:18 | Emergency (ER) | payer BC ==
--- NOTE | 2022-08-24 07:26 | ED ---
General Adult HPI - General Chief complaint: Recheck/Abnormal Lab/Rx Stated complaint: Hypertension,Light headed, Tingle in arm Time Seen by Provider: 08/24/22 07:00 Source: patient, RN notes reviewed, old records reviewed Mode of arrival: wheelchair Limitations: no limitations - History of Present Illness Initial comments: This is a 57-year-old female who presents emergency Department complaining that she is a little bit of issues with her blood pressure being low. She states she also is quite a bit of anxiety so she gets worked up this occurs. Patient states she has tingling in her left arm that lasted approximately 2 seconds. Patient states she has also had a mild headache this morning. Patient states all of his related to her anxiety. Patient states she's been on for anxiety medications that she took for 30 years for a little while now. Patient denies any fever chills or cough per patient denies any shortness of breath or difficulty breathing. Patient denies any chest pain or pressure. Patient denies this. Patient showed me her blood pressures over the last 10 days and none of them were very high and only 2 had a systolic blood pressure under 100. Patient is not taking her blood pressure prior to taking her meds and sometimes she believes that it's low already and then she takes her medicine it drops. - Related Data Home Medications Medication Instructions Recorded Confirmed Atorvastatin [Lipitor] 20 mg PO BID 11/28/20 11/28/20 Cetirizine HCl [Zyrtec] 10 mg PO DAILY PRN 11/28/20 11/28/20 Docusate Sodium [Dok] 200 mg PO HS 11/28/20 11/28/20 Ergocalciferol [Vitamin D2 (1250 1,250 mcg PO [place] 11/28/20 11/28/20 Mcg = 85356 Iu)] Escitalopram [Lexapro] 10 mg PO DAILY 11/28/20 11/28/20 Ibuprofen [Motrin Ib] 400 mg PO Q8H PRN 11/28/20 11/28/20 Levothyroxine Sodium [Synthroid] 25 mcg PO DAILY 11/28/20 11/28/20 Losartan [Cozaar] 25 mg PO HS 11/28/20 11/28/20 Metoprolol Tartrate [Lopressor] 25 mg PO BID 11/28/20 11/28/20 Nortriptyline [Pamelor] 50 mg PO DAILY 11/28/20 11/28/20 Omeprazole [PriLOSEC] 20 mg PO AC-BID 11/28/20 11/28/20 buPROPion XL [Wellbutrin XL] 150 mg PO DAILY 11/28/20 11/28/20 busPIRone HCL [Buspar] 7.5 mg PO BID 11/28/20 11/28/20 lysine HCL [l-Lysine] 1,000 mg PO DAILY PRN 11/28/20 11/28/20 Previous Rx's Medication Instructions Recorded Albuterol Nebulized (Conc) 2.5 mg INHALATION Q6H PRN 6 Days 01/27/22 [Ventolin Nebulized (Conc)] #75 ml Allergies Allergy/AdvReac Type Severity Reaction Status Date / Time CYMBALTA Allergy Confusion, Uncoded 08/24/22 06:39 elevated HR, couldn't sit up bandaids AdvReac "if on too Uncoded 08/24/22 06:39 long, will peel skin off" Review of Systems ROS Statement: Those systems with pertinent positive or pertinent negative responses have been documented in the HPI. ROS Other: All systems not noted in ROS Statement are negative. Past Medical History Past Medical History: Asthma, Cancer, GERD/Reflux, Hyperlipidemia, Hypertension, Skin Disorder, Thyroid Disorder Additional Past Medical History / Comment(s): Hx Heart murmur, seasonal asthma. Skin cancer melanoma. IBS, c/o increased GERD, constipation. Eczema. RSV History of Any Multi-Drug Resistant Organisms: None Reported Past Surgical History: Hysterectomy, Orthopedic Surgery, Tubal Ligation Additional Past Surgical History / Comment(s): Partial hysterectomy. Rt foot surg, has 1 screw. Colonoscopy, EGD. Past Anesthesia/Blood Transfusion Reactions: Motion Sickness Additional Past Anesthesia/Blood Transfusion Reaction / Comment(s): After TL throat swelled up, taken to X-ray. Motion sickness as child. Past Psychological History: Anxiety, Depression, Panic Disorder Smoking Status: Former smoker Past Alcohol Use History: None Reported Past Drug Use History: Marijuana - Past Family History Mother Sister(s) Family Medical History: Cancer Additional Family Medical History / Comment(s): breast cancer for both General Exam - General Exam Comments Initial Comments: GENERAL: Patient is well-developed and well-nourished. Patient is nontoxic and well- hydrated and is in no acute distress. ENT: Neck is soft and supple. No significant lymphadenopathy is noted. Oropharynx is clear. Moist mucous membranes. Neck has full range of motion without eliciting any pain. EYES: The sclera were anicteric and conjunctiva were pink and moist. Extraocular movements were intact and pupils were equal round and reactive to light. Eyelids were unremarkable. PULMONARY: Unlabored respirations. Good breath sounds bilaterally. No audible rales rhonchi or wheezing was noted. CARDIOVASCULAR: There is a regular rate and rhythm without any murmurs gallops or rubs. ABDOMEN: Soft and nontender with normal bowel sounds. SKIN: Skin is clear with no lesions or rashes and otherwise unremarkable. NEUROLOGIC: Patient is alert and oriented x3. Cranial nerves II through XII are grossly intact. Motor and sensory are also intact. Normal speech, volume and content. Symmetrical smile. MUSCULOSKELETAL: Normal extremities with adequate strength and full range of motion. LYMPHATICS: No significant lymphadenopathy is noted PSYCHIATRIC: Mild anxiety Limitations: no limitations Course Vital Signs 08/24/22 06:39 Temperature 98.0 F Pulse Rate 60 Respiratory 16 Rate Blood Pressure 112/57 O2 Sat by Pulse 100 Oximetry Medical Decision Making - Medical Decision Making EKG shows sinus bradycardia 53 bpm [place] interval 268 QRSs 85 Q-T intervals 07/26/1989 QTC is 413. Patient's EKG shows no ST segment elevation or depression patient has T-wave inversions in leads 3 and aVF as well as Q waves in 3 Was pt. sent in by a medical professional or institution (, PA, AGRICULTURAL PLOW OPERATOR, urgent care, hospital, or jail...) When possible be specific @ -No Did you speak to anyone other than the patient for history (EMS, parent, family, police, friend...)? What history was obtained from this source @ -No Did you review nursing and triage notes (agree or disagree)? Why? @ -I reviewed and agree with nursing and triage notes Were old charts reviewed (outside hosp., previous admission, EMS record, old EKG, old radiological studies, urgent care reports/EKG's, jail records)? Report findings @ -I reviewed prior EKGs prior labwork on this patient Differential Diagnosis (chest pain, altered mental status, abdominal pain women, abdominal pain men, vaginal bleeding, weakness, fever, dyspnea, syncope, headache, dizziness, GI bleed, back pain, seizure, CVA, palpatations, mental health, musculoskeletal)? @ -High blood pressure, anxiety, med reaction EKG interpreted by me (3pts min.). @ -As above X-rays interpreted by me (1pt min.). @ -None done CT interpreted by me (1pt min.). @ -None done U/S interpreted by me (1pt. min.). @ -None done What testing was considered but not performed or refused? (CT, X-rays, U/S, labs)? Why? @ -None What meds were considered but not given or refused? Why? @ -None Did you discuss the management of the patient with other professionals (professionals i.e. , PA, AGRICULTURAL PLOW OPERATOR, lab, RT, psych nurse, manager social media, motor generator set operator, teacher, ecological technical officer, disability case manager)? Give summary @ -No Was smoking cessation discussed for >3mins.? @ -No Was critical care preformed (if so, how long)? @ -No Were there social determinants of health that impacted care today? How? (Homelessness, low income, unemployed, alcoholism, drug addiction, transportation, low edu. Level, literacy, decrease access to med. care, group home, rehab)? @ -No Was there de-escalation of care discussed even if they declined (Discuss DNR or withdrawal of care, Hospice)? DNR status @ -No What co-morbidities impacted this encounter? (DM, HTN, Smoking, COPD, CAD, Cancer, CVA, ARF, Chemo, Hep., AIDS, mental health diagnosis, sleep apnea, morbid obesity)? @ -None Was patient admitted / discharged? Hospital course, mention meds given and route, prescriptions, significant lab abnormalities, going to OR and other pertinent info. @ -Patient was not having any symptoms when I initially interviewed her and when I went back and talked to her again she was not having any symptoms. Patient states she'll follow-up with her bench assembler battery to adjust her menstrual started taking her blood pressure readings 4 times a day at the same time and Dr. Jeffrey that the doctor can determine if medications need to be cut back. Undiagnosed new problem with uncertain prognosis? @ -No Drug Therapy requiring intensive monitoring for toxicity (Heparin, Nitro, Insulin, Cardizem)? @ -No Were any procedures done? @ -No Diagnosis/symptom? @ -Anxiety Acute, or Chronic, or Acute on Chronic? @ -Acute Uncomplicated (without systemic symptoms) or Complicated (systemic symptoms)? @ -Uncomplicated Side effects of treatment? @ -No Exacerbation, Progression, or Severe Exacerbation? @ -No Poses a threat to life or bodily function? How? (Chest pain, [place], [place], pneumonia, PE, COPD, DKA, ARF, appy, cholecystitis, CVA, Diverticulitis, Homicidal, Suicidal, threat to staff... and all critical care pts) @ -No Diagnosis/symptom? @ -Low blood pressure Acute, or Chronic, or Acute on Chronic? @ -Acute Uncomplicated (without systemic symptoms) or Complicated (systemic symptoms)? @ -default Side effects of treatment? @ -none Exacerbation, Progression, or Severe Exacerbation] @ -no Poses a threat to life or bodily function? @ -no - Lab Data Result diagrams: 08/24/22 07:02 08/24/22 07:02 Lab Results 08/24/22 08/24/22 08/24/22 Range/Units 07:02 07:02 07:02 WBC 6.1 (3.8-10.6) k/uL RBC 4.33 (3.80-5.40) m/uL Hgb 14.5 (11.4-16.0) gm/dL Hct 41.5 (34.0-46.0) % MCV 95.9 (80.0-100.0) fL MCH 33.6 (25.0-35.0) pg MCHC 35.0 (31.0-37.0) g/dL RDW 11.8 (11.5-15.5) % Plt Count 261 (150-450) k/uL MPV 7.1 Neutrophils % 66 % Lymphocytes % 25 % Monocytes % 4 % Eosinophils % 2 % Basophils % 1 % Neutrophils # 4.0 (1.3-7.7) k/uL Lymphocytes # 1.5 (1.0-4.8) k/uL Monocytes # 0.3 (0-1.0) k/uL Eosinophils # 0.1 (0-0.7) k/uL Basophils # 0.0 (0-0.2) k/uL Sodium 140 (137-145) mmol/L Potassium 3.9 (3.5-5.1) mmol/L Chloride 105 (98-107) mmol/L Carbon Dioxide 25 (22-30) mmol/L Anion Gap 10 mmol/L BUN 17 (7-17) mg/dL Creatinine 0.64 (0.52-1.04) mg/dL Est GFR (CKD-EPI)AfAm >90 (>60 ml/min/1.73 sqM) Est GFR (CKD-EPI)NonAf >90 (>60 ml/min/1.73 sqM) Glucose 77 (74-99) mg/dL Calcium 9.4 (8.4-10.2) mg/dL Magnesium 1.5 L (1.6-2.3) mg/dL Total Bilirubin 1.9 H (0.2-1.3) mg/dL AST 27 (14-36) U/L ALT 39 H (4-34) U/L Alkaline Phosphatase 74 (38-126) U/L Troponin I <0.012 (0.000-0.034) ng/mL Total Protein 7.3 (6.3-8.2) g/dL Albumin 4.5 (3.5-5.0) g/dL Disposition Clinical Impression: Low blood pressure, Anxiety Disposition: HOME SELF-CARE Condition: Good Instructions (If sedation given, give patient instructions): Anxiety (ED) Is patient prescribed a controlled substance at d/c from ED?: No Referrals: Karen Fleming MD [Primary Care Provider] - 1-2 days Time of Disposition: 08:27
[2022-08-24 07:30] LABS: Basophils % (A) 1 %; Eosinophils # (A) 0.1 k/uL (0-0.7); Eosinophils % (A) 2 %; HCT 41.5 % (34.0-46.0); HGB 14.5 gm/dL (11.4-16.0); Lymphocytes # (A) 1.5 k/uL (1.0-4.8); Lymphocytes % (A) 25 %; MCH 33.6 pg (25.0-35.0); MCV 95.9 fL (80.0-100.0); Mean Platelet Volume 7.1; Monocytes # (A) 0.3 k/uL (0-1.0); Monocytes % (A) 4 %; Neutrophils % (A) 66 %; Platelet Count 261 k/uL (150-450); RBC 4.33 m/uL (3.80-5.40); RDW 11.8 % (11.5-15.5); WBC 6.1 k/uL (3.8-10.6)
[2022-08-24 07:43] LABS: ALT 39 U/L (4-34); AST 27 U/L (14-36); African American GFR (CKD) >90 (>60 ml/min/1.73 sqM); Albumin 4.5 g/dL (3.5-5.0); Alkaline Phosphatase 74 U/L (38-126); Anion Gap 10 mmol/L; Blood Urea Nitrogen 17 mg/dL (7-17); Calcium 9.4 mg/dL (8.4-10.2); Carbon Dioxide 25 mmol/L (22-30); Chloride 105 mmol/L (98-107); Glucose 77 mg/dL (74-99); Magnesium 1.5 mg/dL (1.6-2.3); Non-African American GFR(CKD) >90 (>60 ml/min/1.73 sqM); Potassium 3.9 mmol/L (3.5-5.1); Sodium 140 mmol/L (137-145); Total Bilirubin 1.9 mg/dL (0.2-1.3); Total Protein 7.3 g/dL (6.3-8.2)
[2022-08-24 08:49] VITALS: BP 158/72; PULSE 57; RESP 18; TEMP 97.6
== END 2022-08-24 09:00 | disposition home or self-care (01) ==
LOC: EC 06:18
DX: I95.9 Hypotension, unspecified (principal); F41.9 Anxiety disorder, unspecified; J45.909 Unspecified asthma, uncomplicated; K21.9 Gastro-esophageal reflux disease without esophagitis; E78.5 Hyperlipidemia, unspecified; I10 Essential (primary) hypertension; E07.9 Disorder of thyroid, unspecified; F32.A Depression, unspecified; F12.90 Cannabis use, unspecified, uncomplicated; Z87.891 Personal history of nicotine dependence; Z79.890 Hormone replacement therapy; Z79.899 Other long term (current) drug therapy; Z91.09 Other allergy status, other than to drugs and biological substances; Z88.8 Allergy status to other drugs, medicaments and biological substances
CPT/HCPCS: 36415; 80053; 83735; 84484; 85025; 93005; 99284

== ENCOUNTER → 2022-09-08 | Outpatient (CLI) | payer BC ==
[2022-09-08 09:51] LABS: Basophils % (A) 1 %; Eosinophils # (A) 0.1 k/uL (0-0.7); Eosinophils % (A) 3 %; HCT 40.8 % (34.0-46.0); HGB 13.5 gm/dL (11.4-16.0); Lymphocytes # (A) 1.5 k/uL (1.0-4.8); Lymphocytes % (A) 39 %; MCH 32.5 pg (25.0-35.0); MCHC 33.2 g/dL (31.0-37.0); MCV 98.1 fL (80.0-100.0); Mean Platelet Volume 7.2; Monocytes # (A) 0.2 k/uL (0-1.0); Monocytes % (A) 6 %; Neutrophils # (A) 1.9 k/uL (1.3-7.7); Neutrophils % (A) 49 %; Platelet Count 253 k/uL (150-450); RBC 4.16 m/uL (3.80-5.40); WBC 3.8 k/uL (3.8-10.6)
[2022-09-09 09:26] LABS: Estimated Average Glucose 105 mg/dL
[2022-09-09 09:27] LABS: ALT 56 U/L; AST 27 U/L; African American GFR (CKD) >90; Albumin 4.4 d/dL; Alkaline Phosphatase 89 U/L; BUN/Creat Ratio 13.88 Ratio; Blood Urea Nitrogen 11.1 mg/dL; Calcium 9.9 mg/dL; Carbon Dioxide 28.6 mmol/L; Chloride 105 mmol/L; Chol/HDL Ratio 2.13 Ratio; Globulin 2.2 d/dL; Glucose 92 mg/dL; LDL Cholesterol,Calculated 62.1 mg/dL; Potassium 4.3 mmol/L; Sodium 140 mmol/L; Total Bilirubin 1.3 mg/dL; Total Protein 6.6 d/dL
[2022-09-10 10:16] LABS: Non-African American GFR(CKD) 81.7
== END | disposition home or self-care (01) ==
LOC: LABWHC1 08:37
PROVIDERS: ATTEND Nurse Practitioner Family
DX: Z00.00 Encounter for general adult medical examination without abnormal findings (principal); I10 Essential (primary) hypertension; E78.5 Hyperlipidemia, unspecified; E03.9 Hypothyroidism, unspecified
CPT/HCPCS: 36415; 80053; 80061; 82306; 82607; 82746; 83036; 84443; 85025

== ENCOUNTER 2022-10-19 16:19 | Observation (INO) | payer BC ==
[2022-10-19] MEDS ORDERED: NITROGLYCERIN OINT 1 INCH/GM PACKET TOPICAL STA (17:12)
[2022-10-19] MEDS ORDERED: ASPIRIN 81 MG PO STA (17:12)
--- NOTE | 2022-10-19 17:16 | ED ---
General Adult HPI - General Chief complaint: Chest Pain Stated complaint: Chest Pain Time Seen by Provider: 10/19/22 16:51 Source: patient, RN notes reviewed Mode of arrival: ambulatory Limitations: no limitations - History of Present Illness Initial comments: Patient is a pleasant 57-year-old female presenting to the emergency department with concerns for chest discomfort. Patient has had symptoms for months. Patient has seen her fabricator artificial breast for this and believe she may have had a stress test. Discomfort is mild at this time. Patient now is having discomfort daily were previously was intermittent. Discomfort is currently 2/10. Discomfort f eels like indigestion. There is some radiation to the back. Patient does feel a little bit short of breath. - Related Data Home Medications Medication Instructions Recorded Confirmed Ergocalciferol [Vitamin D2 (1250 1,250 mcg PO MAYNARD 11/28/20 10/19/22 Mcg = 84877 Iu)] Levothyroxine Sodium [Synthroid] 25 mcg PO DAILY 11/28/20 10/19/22 Losartan [Cozaar] 25 mg PO BID 11/28/20 10/19/22 Omeprazole [PriLOSEC] 20 mg PO BID 11/28/20 10/19/22 buPROPion XL [Wellbutrin XL] 150 mg PO DAILY 11/28/20 10/19/22 Ashwagandha Root Extract 500 mg PO BID 10/19/22 10/19/22 [Ashwagandha] Atorvastatin [Lipitor] 40 mg PO HS 10/19/22 10/19/22 Linaclotide [Linzess] 72 mcg PO DAILY PRN 10/19/22 10/19/22 busPIRone HCL 15 mg PO BID 10/19/22 10/19/22 Allergies Allergy/AdvReac Type Severity Reaction Status Date / Time minocycline Allergy Unknown Verified 10/19/22 17:53 duloxetine [From Cymbalta] AdvReac Confusion, Verified 10/19/22 17:52 elevated HR, couldn't sit up bandaids AdvReac "if on too Uncoded 10/19/22 17:52 long, will peel skin off" Review of Systems ROS Statement: Those systems with pertinent positive or pertinent negative responses have been documented in the HPI. ROS Other: All systems not noted in ROS Statement are negative. Constitutional: Denies: fever Eyes: Denies: eye pain ENT: Denies: ear pain Respiratory: Reports: as per HPI, dyspnea. Denies: cough Cardiovascular: Reports: as per HPI, chest pain Endocrine: Denies: fatigue Gastrointestinal: Denies: abdominal pain Genitourinary: Denies: dysuria Past Medical History Past Medical History: Asthma, Cancer, GERD/Reflux, Hyperlipidemia, Hypertension, Skin Disorder, Thyroid Disorder Additional Past Medical History / Comment(s): Hx Heart murmur, seasonal asthma. Skin cancer melanoma. IBS, c/o increased GERD, constipation. Eczema. RSV History of Any Multi-Drug Resistant Organisms: None Reported Past Surgical History: Hysterectomy, Orthopedic Surgery, Tubal Ligation Additional Past Surgical History / Comment(s): Partial hysterectomy. Rt foot surg, has 1 screw. Colonoscopy, EGD. Past Anesthesia/Blood Transfusion Reactions: Motion Sickness Additional Past Anesthesia/Blood Transfusion Reaction / Comment(s): After TL throat swelled up, taken to X-ray. Motion sickness as child. Past Psychological History: Anxiety, Depression, Panic Disorder Smoking Status: Former smoker Past Alcohol Use History: None Reported Past Drug Use History: Marijuana - Past Family History Mother Sister(s) Family Medical History: Cancer Additional Family Medical History / Comment(s): breast cancer for both General Exam Limitations: no limitations General appearance: alert, in no apparent distress Head exam: Present: normocephalic Eye exam: Present: normal appearance Neck exam: Present: normal inspection Respiratory exam: Present: normal lung sounds bilaterally. Absent: chest wall tenderness Cardiovascular Exam: Present: regular rate, normal rhythm, systolic murmur (Patient states chronic) Expanded Peripheral pulses: 2+: Radial (R), Radial (L), Dorsalis Pedis (R), Dorsalis Pedis (L) GI/Abdominal exam: Present: soft. Absent: distended, tenderness, guarding, pulsatile mass Extremities exam: Present: normal inspection. Absent: pedal edema, calf tenderness Neurological exam: Present: alert Psychiatric exam: Present: normal affect, normal mood Skin exam: Present: normal color Course Vital Signs 10/19/22 10/19/22 16:41 16:56 Temperature 98.5 F Pulse Rate 84 84 Respiratory 18 18 Rate Blood Pressure 152/69 174/82 O2 Sat by Pulse 100 98 Oximetry EKG Findings - EKG Results: EKG: interpreted by ERMD (Right axis), sinus rhythm, normal QRS, normal ST/T Medical Decision Making - Medical Decision Making Was pt. sent in by a medical professional or institution (, ROBERTO, IMPLEMENTATION DIRECTOR, urgent care, hospital, or fpc...) When possible be specific @ -No Did you speak to anyone other than the patient for history (EMS, parent, family, police, friend...)? What history was obtained from this source @ -No Did you review nursing and triage notes (agree or disagree)? Why? @ -I reviewed and agree with nursing and triage notes Were old charts reviewed (outside hosp., previous admission, EMS record, old EKG, old radiological studies, urgent care reports/EKG's, fpc records)? Report findings @ -No old charts were reviewed Differential Diagnosis (chest pain, altered mental status, abdominal pain women, abdominal pain men, vaginal bleeding, weakness, fever, dyspnea, syncope, headache, dizziness, GI bleed, back pain, seizure, CVA, palpatations, mental he alth, musculoskeletal)? @ -Differential Chest Pain: Stable Angina, Unstable Angina, STEMI, NSTEMI Aortic Dissection, Pneumothorax, Musculoskeletal, Esophageal Spasm GERD, Cholecystitis, Pancreatitis, Zoster, this is not meant to be an all-inclusive list. EKG interpreted by me (3pts min.). @ -As above X-rays interpreted by me (1pt min.). @ -Chest x-ray shows no acute process CT interpreted by me (1pt min.). @ -None done U/S interpreted by me (1pt. min.). @ -None done What testing was considered but not performed or refused? (CT, X-rays, U/S, labs)? Why? @ -None What meds were considered but not given or refused? Why? @ -None Did you discuss the management of the patient with other professionals (professionals i.e. , ROBERTO, IMPLEMENTATION DIRECTOR, lab, RT, psych nurse, high school social studies teacher, medical assistant cardiology, teacher, affirmative action officer, transplant case manager)? Give summary @ -Case was discussed with practitioner Laurita Moeller, who will admit covering hospital call Was smoking cessation discussed for >3mins.? @ -No Was critical care preformed (if so, how long)? @ -No Were there social determinants of health that impacted care today? How? (Homelessness, low income, unemployed, alcoholism, drug addiction, transportation, low edu. Level, literacy, decrease access to med. care, senior living, rehab)? @ -No Was there de-escalation of care discussed even if they declined (Discuss DNR or withdrawal of care, Hospice)? DNR status @ -No What co-morbidities impacted this encounter? (DM, HTN, Smoking, COPD, CAD, Cancer, CVA, ARF, Chemo, Hep., AIDS, mental health diagnosis, sleep apnea, morbid obesity)? @ -None Was patient admitted / discharged? Hospital course, mention meds given and route, prescriptions, significant lab abnormalities, going to OR and other pertinent info. @ -Before meals reevaluated and updated. Patient will be admitted for cardiac Undiagnosed new problem with uncertain prognosis? @ -No Drug Therapy requiring intensive monitoring for toxicity (Heparin, Nitro, Insulin, Cardizem)? @ -No Were any procedures done? @ -No Diagnosis/symptom? @ -Chest pain Acute, or Chronic, or Acute on Chronic? @ -Acute Uncomplicated (without systemic symptoms) or Complicated (systemic symptoms)? @ -default Side effects of treatment? @ -No Exacerbation, Progression, or Severe Exacerbation? @ -No Poses a threat to life or bodily function? How? (Chest pain, [place], [place], pneumonia, PE, COPD, DKA, ARF, appy, cholecystitis, CVA, Diverticulitis, Homicidal, Suicidal, threat to staff... and all critical care pts) @ -No - Lab Data Result diagrams: 10/19/22 17:13 10/19/22 17:13 Lab Results 10/19/22 10/19/22 10/19/22 Range/Units 17:13 17:13 17:13 WBC 6.4 (3.8-10.6) k/uL RBC 4.07 (3.80-5.40) m/uL Hgb 13.5 (11.4-16.0) gm/dL Hct 39.1 (34.0-46.0) % MCV 96.2 (80.0-100.0) fL MCH 33.3 (25.0-35.0) pg MCHC 34.6 (31.0-37.0) g/dL RDW 11.7 (11.5-15.5) % Plt Count 257 (150-450) k/uL MPV 7.2 Neutrophils % 55 % Lymphocytes % 37 % Monocytes % 5 % Eosinophils % 1 % Basophils % 1 % Neutrophils # 3.5 (1.3-7.7) k/uL Lymphocytes # 2.4 (1.0-4.8) k/uL Monocytes # 0.3 (0-1.0) k/uL Eosinophils # 0.1 (0-0.7) k/uL Basophils # 0.0 (0-0.2) k/uL PT 10.8 (9.0-12.0) sec INR 1.0 (<1.2) APTT 24.8 (22.0-30.0) sec D-Dimer <0.17 (<0.60) mg/L FEU Sodium 139 (137-145) mmol/L Potassium 3.6 (3.5-5.1) mmol/L Chloride 103 (98-107) mmol/L Carbon Dioxide 22 (22-30) mmol/L Anion Gap 14 mmol/L BUN 17 (7-17) mg/dL Creatinine 0.63 (0.52-1.04) mg/dL Est GFR (CKD-EPI)AfAm >90 (>60 ml/min/1.73 sqM) Est GFR (CKD-EPI)NonAf >90 (>60 ml/min/1.73 sqM) Glucose 127 H (74-99) mg/dL Calcium 9.5 (8.4-10.2) mg/dL Magnesium 1.5 L (1.6-2.3) mg/dL Total Bilirubin 1.6 H (0.2-1.3) mg/dL AST 32 (14-36) U/L ALT 44 H (4-34) U/L Alkaline Phosphatase 81 (38-126) U/L Troponin I (0.000-0.034) ng/mL NT-Pro-B Natriuret Pep pg/mL Total Protein 7.3 (6.3-8.2) g/dL Albumin 4.4 (3.5-5.0) g/dL Amylase 66 (30-110) U/L Lipase 61 (23-300) U/L 10/19/22 10/19/22 Range/Units 17:13 17:13 WBC (3.8-10.6) k/uL RBC (3.80-5.40) m/uL Hgb (11.4-16.0) gm/dL Hct (34.0-46.0) % MCV (80.0-100.0) fL MCH (25.0-35.0) pg MCHC (31.0-37.0) g/dL RDW (11.5-15.5) % Plt Count (150-450) k/uL MPV Neutrophils % % Lymphocytes % % Monocytes % % Eosinophils % % Basophils % % Neutrophils # (1.3-7.7) k/uL Lymphocytes # (1.0-4.8) k/uL Monocytes # (0-1.0) k/uL Eosinophils # (0-0.7) k/uL Basophils # (0-0.2) k/uL PT (9.0-12.0) sec INR (<1.2) APTT (22.0-30.0) sec D-Dimer (<0.60) mg/L FEU Sodium (137-145) mmol/L Potassium (3.5-5.1) mmol/L Chloride (98-107) mmol/L Carbon Dioxide (22-30) mmol/L Anion Gap mmol/L BUN (7-17) mg/dL Creatinine (0.52-1.04) mg/dL Est GFR (CKD-EPI)AfAm (>60 ml/min/1.73 sqM) Est GFR (CKD-EPI)NonAf (>60 ml/min/1.73 sqM) Glucose (74-99) mg/dL Calcium (8.4-10.2) mg/dL Magnesium (1.6-2.3) mg/dL Total Bilirubin (0.2-1.3) mg/dL AST (14-36) U/L ALT (4-34) U/L Alkaline Phosphatase (38-126) U/L Troponin I <0.012 (0.000-0.034) ng/mL NT-Pro-B Natriuret Pep 31 pg/mL Total Protein (6.3-8.2) g/dL Albumin (3.5-5.0) g/dL Amylase (30-110) U/L Lipase (23-300) U/L Disposition Clinical Impression: Chest pain Disposition: ADMITTED IP TO THIS [facility] Is patient prescribed a controlled substance at d/c from ED?: No Referrals: None,Stated [Primary Care Provider] - 1-2 days Time of Disposition: 18:57
[2022-10-19 17:36] LABS: Basophils % (A) 1 %; Eosinophils # (A) 0.1 k/uL (0-0.7); Eosinophils % (A) 1 %; HCT 39.1 % (34.0-46.0); HGB 13.5 gm/dL (11.4-16.0); Lymphocytes # (A) 2.4 k/uL (1.0-4.8); Lymphocytes % (A) 37 %; MCH 33.3 pg (25.0-35.0); MCHC 34.6 g/dL (31.0-37.0); MCV 96.2 fL (80.0-100.0); Mean Platelet Volume 7.2; Monocytes # (A) 0.3 k/uL (0-1.0); Monocytes % (A) 5 %; Neutrophils # (A) 3.5 k/uL (1.3-7.7); Neutrophils % (A) 55 %; Platelet Count 257 k/uL (150-450); RBC 4.07 m/uL (3.80-5.40); RDW 11.7 % (11.5-15.5); WBC 6.4 k/uL (3.8-10.6)
--- NOTE | 2022-10-19 17:58 | XR ---
EXAMINATION TYPE: XR chest 2V DATE OF EXAM: 10/19/2022 COMPARISON: 06/25/2022 HISTORY: 57-year-old female with chest pain TECHNIQUE: PA and lateral views FINDINGS: The cardiomediastinal silhouette, aorta, and pulmonary vasculature are within normal limits. Hyperinf lation. Lungs and pleural spaces are clear. IMPRESSION: Correlate for underlying COPD. No acute cardiopulmonary process.
[2022-10-19 17:59] LABS: ALT 44 U/L (4-34); AST 32 U/L (14-36); African American GFR (CKD) >90 (>60 ml/min/1.73 sqM); Albumin 4.4 g/dL (3.5-5.0); Alkaline Phosphatase 81 U/L (38-126); Amylase 66 U/L (30-110); Anion Gap 14 mmol/L; Blood Urea Nitrogen 17 mg/dL (7-17); Calcium 9.5 mg/dL (8.4-10.2); Carbon Dioxide 22 mmol/L (22-30); Chloride 103 mmol/L (98-107); Glucose 127 mg/dL (74-99); Lipase 61 U/L (23-300); Magnesium 1.5 mg/dL (1.6-2.3); Non-African American GFR(CKD) >90 (>60 ml/min/1.73 sqM); Potassium 3.6 mmol/L (3.5-5.1); Sodium 139 mmol/L (137-145); Total Bilirubin 1.6 mg/dL (0.2-1.3); Total Protein 7.3 g/dL (6.3-8.2)
[2022-10-19 18:11] LABS: Partial Thromboplastin Time 24.8 sec (22.0-30.0); Prothrombin Time 10.8 sec (9.0-12.0)
[2022-10-19] MEDS ORDERED: NITROGLYCERIN SL TABS 0.4 MG TAB SUBLINGUAL PRN (18:57)
[2022-10-19] MEDS ORDERED: Magnesium Replacement Protocol 1 EACH MISC MISCELLANE PRN (23:03)
[2022-10-19] MEDS ORDERED: ONDANSETRON 4 MG/2 ML VIAL IVP PRN (23:05)
[2022-10-19] MEDS ORDERED: ACETAMINOPHEN TAB 325 MG TAB PO PRN (23:05)
[2022-10-19] MEDS ORDERED: ATORVASTATIN 40 MG TAB PO SCH (23:15)
[2022-10-20] MEDS: busPIRone HCl 5 MG TAB PO SCH ×2 (00:10→09:23)
[2022-10-20] MEDS: MAGNESIUM SULFATE-D5W PMX 1 GM in DEXTROSE/WATER 1 100ML.BAG IVPB SCH ×2 (00:10→01:23)
[2022-10-20] MEDS: PANTOPRAZOLE 40 MG TABLET PO SCH ×2 (00:10→05:49)
[2022-10-20] MEDS: LOSARTAN 25 MG TAB PO SCH ×2 (00:10→09:23)
[2022-10-20] MEDS: NITROGLYCERIN OINT 1 INCH/GM PACKET TOPICAL SCH ×2 (00:24→05:49)
[2022-10-20] MEDS ORDERED: LEVOTHYROXINE 25 MCG TAB PO SCH (06:30)
[2022-10-20] MEDS ORDERED: PANTOPRAZOLE 40 MG TABLET PO SCH (07:30)
[2022-10-20 07:59] VITALS: BP 124/66; PULSE 60; RESP 16; TEMP 98
[2022-10-20] MEDS ORDERED: buPROPion XL 150 MG TAB.ER.24H PO SCH (09:00)
[2022-10-20] MEDS ORDERED: ASPIRIN 81 MG PO SCH (09:00)
[2022-10-20] MEDS ORDERED: HEPARIN SODIUM,PORCINE/PF 5,000 UNIT/0.5 ML SYRINGE SQ SCH (09:00)
[2022-10-20] MEDS ORDERED: ASPIRIN 325 MG TAB PO SCH (09:00)
[2022-10-20 09:34] LABS: Chol/HDL Ratio 2.01 Ratio; LDL Cholesterol,Calculated 53.3 mg/dL (0.0-131.0); Magnesium 2.1 mg/dL (1.5-2.4); VLDL Calculation 7.58 mg/dL (5.00-40.00)
--- NOTE | 2022-10-20 12:18 | P.CRDCN ---
History of Present Illness Consult date: 10/20/22 Requesting physician: Nancy Brannon Reason for Consult (text): Chest pain Chief complaint: Abdominal pain, chest pain, dizziness and shortness of breath History of present illness: This is a pleasant 57-year-old female patient who follows in the office with Dr. Hoskins. She has a history of hypertension and dyslipidemia. Was recently seen in the office by Dr. Hoskins following a Lexiscan MPI which was normal and an echocardiogram with Doppler study last month that showed normal LV systolic fun ction with mild MR and moderate AI. She presented to the emergency department with complaints of abdominal pain as well as chest discomfort varying in location, brief and recurrent over the last several months. Also complaining of some shortness of breath. She quit smoking 10 years ago but has smoked marijuana recently including using of a THC vape pen 2-3 times a day which she has abstained from over the last couple of days. Chest x-ray on admission read as to correlate for COPD. Troponins have been negative 3 EKG is unremarkable. She complains of left lower quadrant discomfort with palpation. Has no current complaints of chest discomfort. Her breathing has improved. She does admit to using the marijuana to help with her anxiety. She's had no edema, orthopnea or PND. She's had no syncope or near syncope. Past Medical History Past Medical History: Asthma, Cancer, GERD/Reflux, Hyperlipidemia, Hypertension, Skin Disorder, Thyroid Disorder Additional Past Medical History / Comment(s): Hx Heart murmur, seasonal asthma. Skin cancer melanoma. IBS, c/o increased GERD, constipation. Eczema. RSV History of Any Multi-Drug Resistant Organisms: None Reported Past Surgical History: Hysterectomy, Orthopedic Surgery, Tubal Ligation Additional Past Surgical History / Comment(s): Partial hysterectomy. Rt foot surg, has 1 screw. Colonoscopy, EGD. Past Anesthesia/Blood Transfusion Reactions: Motion Sickness Additional Past Anesthesia/Blood Transfusion Reaction / Comment(s): After TL throat swelled up, taken to X-ray. Motion sickness as child. Past Psychological History: Anxiety, Depression, Panic Disorder Smoking Status: Former smoker Past Alcohol Use History: None Reported Additional Past Alcohol Use History / Comment(s): Smoked socially 8-9 years, quit 2012. Past Drug Use History: Marijuana Additional Drug Use History / Comment(s): past use only - Past Family History Mother Sister(s) Family Medical History: Cancer Additional Family Medical History / Comment(s): breast cancer for both Medications and Allergies Home Medications Medication Instructions Recorded Confirmed Type Ergocalciferol [Vitamin D2 (1250 1,250 mcg PO MAYNARD 11/28/20 10/19/22 History Mcg = 83478 Iu)] Levothyroxine Sodium [Synthroid] 25 mcg PO DAILY 11/28/20 10/19/22 History Losartan [Cozaar] 25 mg PO BID 11/28/20 10/19/22 History Omeprazole [PriLOSEC] 20 mg PO BID 11/28/20 10/19/22 History buPROPion XL [Wellbutrin XL] 150 mg PO DAILY 11/28/20 10/19/22 History Ashwagandha Root Extract 500 mg PO BID 10/19/22 10/19/22 History [Ashwagandha] Atorvastatin [Lipitor] 40 mg PO HS 10/19/22 10/19/22 History Linaclotide [Linzess] 72 mcg PO DAILY PRN 10/19/22 10/19/22 History busPIRone HCL 15 mg PO BID 10/19/22 10/19/22 History Allergies Allergy/AdvReac Type Severity Reaction Status Date / Time minocycline Allergy Unknown Verified 10/19/22 17:53 duloxetine [From Cymbalta] AdvReac Confusion, Verified 10/19/22 17:52 elevated HR, couldn't sit up bandaids AdvReac "if on too Uncoded 10/19/22 17:52 long, will peel skin off" Physical Exam Vitals: Vital Signs Temp Pulse Pulse Resp BP BP Pulse Ox 10/20/22 11:39 99 10/20/22 07:00 98.0 F 60 16 124/66 99 10/20/22 01:32 66 18 10/20/22 00:24 97.7 F 66 18 113/71 97 10/19/22 21:52 66 18 10/19/22 19:48 70 18 160/85 98 10/19/22 19:20 97.8 F 66 16 147/72 97 10/19/22 16:56 84 18 174/82 98 10/19/22 16:41 98.5 F 84 18 152/69 100 Intake and Output 10/19/22 10/20/22 10/20/22 22:59 06:59 14:59 Other: # Voids 1 2 Weight 65.317 kg PHYSICAL EXAMINATION: This is a 57-year-old female in no apparent distress at the time of my examination. HEENT: Head is atraumatic, normocephalic. Pupils are equal, round. Sclerae anicteric. Conjunctivae are clear. Mucous membranes of the mouth are moist. Neck is supple. There is no elevated jugular venous pressure. No carotid bruit is heard. CHEST EXAMINATION: Lungs reveal diminished air entry bilaterally. No wheezes rales or rhonchi. Respirations even and nonlabored. HEART EXAMINATION: Heart regular, positive S1 and S2. No S3. No S4. The diastolic murmur at the left upper sternal border. ABDOMEN: Soft, mild tenderness to palpation of the left lower quadrant. Bowel sounds are heard. No organomegaly noted. EXTREMITIES: 2+ peripheral pulses with no evidence of peripheral edema and no calf tenderness noted. NEUROLOGIC EXAMINATION: Patient is awake, alert and oriented x3. Results 10/19/22 17:13 10/19/22 17:13 Cardiac Enzymes 10/19/22 10/19/22 10/19/22 Range/Units 17:13 17:13 19:38 AST 32 (14-36) U/L Troponin I <0.012 <0.012 (0.000-0.034) ng/mL 10/19/22 Range/Units 22:10 AST (14-36) U/L Troponin I <0.012 (0.000-0.034) ng/mL Coagulation 10/19/22 Range/Units 17:13 PT 10.8 (9.0-12.0) sec APTT 24.8 (22.0-30.0) sec Lipids 10/20/22 Range/Units 05:34 Triglycerides 37.90 (0.00-149.00) mg/dL Cholesterol 121.00 (0.00-200.00) mg/dL HDL Cholesterol 60.10 H (40.00-60.00) mg/dL Cholesterol/HDL Ratio 2.01 Ratio CBC 10/19/22 Range/Units 17:13 WBC 6.4 (3.8-10.6) k/uL RBC 4.07 (3.80-5.40) m/uL Hgb 13.5 (11.4-16.0) gm/dL Hct 39.1 (34.0-46.0) % Plt Count 257 (150-450) k/uL Comprehensive Metabolic Panel 10/19/22 Range/Units 17:13 Sodium 139 (137-145) mmol/L Potassium 3.6 (3.5-5.1) mmol/L Chloride 103 (98-107) mmol/L Carbon Dioxide 22 (22-30) mmol/L BUN 17 (7-17) mg/dL Creatinine 0.63 (0.52-1.04) mg/dL Glucose 127 H (74-99) mg/dL Calcium 9.5 (8.4-10.2) mg/dL AST 32 (14-36) U/L ALT 44 H (4-34) U/L Alkaline Phosphatase 81 (38-126) U/L Total Protein 7.3 (6.3-8.2) g/dL Albumin 4.4 (3.5-5.0) g/dL Current Medications Generic Name Dose Route Start Last Admin Trade Name Freq PRN Reason Stop Dose Admin Acetaminophen 650 mg 10/19/22 23:05 Acetaminophen Tab 325 Mg Tab PO Q6HR PRN Fever and/ or Pain Aspirin 81 mg 10/20/22 09:00 10/20/22 09:23 Aspirin 81 Mg PO 81 mg DAILY RADHA Administration Atorvastatin Calcium 40 mg 10/19/22 23:15 10/20/22 00:09 Atorvastatin 40 Mg Tab PO 40 mg HS RADHA Administration Bupropion HCl 150 mg 10/20/22 09:00 10/20/22 09:23 Bupropion Xl 150 Mg Tab.Er.24h PO 150 mg DAILY RADHA Administration Buspirone HCl 15 mg 10/19/22 23:15 10/20/22 09:23 Buspirone Hcl 5 Mg Tab PO 15 mg BID RADHA Administration Ergocalciferol 1,250 mcg 10/21/22 09:00 Ergocalciferol 1,250 Mcg (50,000 Iu) Capsule PO MAYNARD RADHA Heparin Sodium (Porcine) 5,000 unit 10/20/22 09:00 10/20/22 09:23 Heparin Sodium,Porcine/Pf 5,000 Unit/0.5 Ml Syringe SQ 5,000 unit Q12HR RADHA Administration Levothyroxine Sodium 25 mcg 10/20/22 06:30 10/20/22 05:49 Levothyroxine 25 Mcg Tab PO 25 mcg DAILY@0630 RADHA Administration Losartan Potassium 25 mg 10/19/22 23:15 10/20/22 09:23 Losartan 25 Mg Tab PO 25 mg BID RADHA Administration Miscellaneous Information 1 each 10/19/22 23:03 Magnesium Replacement Protocol 1 Each Misc MISCELLANE DAILY PRN Per Protocol Protocol Nitroglycerin 0.4 mg 10/19/22 18:57 Nitroglycerin Sl Tabs 0.4 Mg Tab SUBLINGUAL Q5M PRN Chest Pain Ondansetron HCl 4 mg 10/19/22 23:05 Ondansetron 4 Mg/2 Ml Vial IVP Q6HR PRN Nausea And Vomiting Pantoprazole Sodium 40 mg 10/19/22 23:15 10/20/22 05:49 Pantoprazole 40 Mg Tablet PO 40 mg AC-BID RADHA Administration Intake and Output 10/19/22 10/20/22 10/20/22 22:59 06:59 14:59 Other: # Voids 1 2 Weight 65.317 kg 10/19/22 17:13 10/19/22 17:13 EKG Interpretations (text) Sinus rhythm Assessment and Plan Assessment: #1 chest pain, acute coronary event has been ruled out, troponins have been negative 3, EKG shows no evidence of ischemia, patient had normal Lexiscan MPI in August of this year #2 hypertension #3 hyperlipidemia Plan: From cardiology's perspective and acute coronary event has been ruled out. Patient's symptoms are atypical. Recent testing was reviewed, no need for further cardiac workup at this time. She may be discharged home and follow-up with Dr. Arrington as an outpatient. DUMP ATTENDANT note has been reviewed, I agree with a documented findings and plan of care. Patient was seen and examined.
--- NOTE | 2022-10-20 14:05 | P.HPIM ---
History of Present Illness H&P Date: 10/20/22 History of present illness; patient is a 57-year-old lady with past medical hist ory significant for hypothyroidism, hypertension, hyperlipidemia who presented to the ER because of chest pain. Patient stated that she has been having this on and off chest pain for months. Patient states just recently location, radiates to her back, not associated with any shortness of breath. Denies any aggravating or relieving factors associated with this chest pain. patient has seen outpatient cardiology for that and believes that stress test was done. Denies any swelling of feet. Denies any orthopnea or PND. no swelling of feet. because of this chest pain, patient came to the er Initial lab work done in the ER showed WBC 6.4, hemoglobin 13.5, platelet count 257, d-dimer 0.17, sodium 139, potassium 3.6, BUN 17, creatinine 0.63, total bilirubin 1.6, magnesium 1.5 Initial EKG done showed regular rate of 83, no significant depression or elevation, no T-wave inversion seen Chest x-ray done showed no acute cardiac process She admitted to medicine service REVIEW OF SYSTEMS: CONSTITUTIONAL: No fever, no malaise, no fatigue. HEENT: No recent visual problems or hearing problems. Denied any sore throat. CARDIOVASCULAR: As mentioned in HPI PULMONARY: No shortness of breath, no cough, no hemoptysis. GASTROINTESTINAL: No diarrhea, no nausea, no vomiting, no abdominal pain. NEUROLOGICAL: No headaches, no weakness, no numbness. HEMATOLOGICAL: Denies any bleeding or petechiae. GENITOURINARY: Denies any burning micturition, frequency, or urgency. MUSCULOSKELETAL/RHEUMATOLOGICAL: Denies any joint pain, swelling, or any muscle pain. ENDOCRINE: Denies any polyuria or polydipsia. The rest of the 14-point review of systems is negative. PHYSICAL EXAMINATION: GENERAL: The patient is alert and oriented x3, not in any acute distress. Well developed, well nourished. HEENT: Pupils are round and equally reacting to light. EOMI. No scleral icterus. No conjunctival pallor. Normocephalic, atraumatic. No pharyngeal erythema. No thyromegaly. CARDIOVASCULAR: S1 and S2 present. No murmurs, rubs, or gallops. PULMONARY: Chest is clear to auscultation, no wheezing or crackles. ABDOMEN: Soft, nontender, nondistended, normoactive bowel sounds. No palpable organomegaly. MUSCULOSKELETAL: No joint swelling or deformity. EXTREMITIES: No cyanosis, clubbing, or pedal edema. NEUROLOGICAL: Gross neurological examination did not reveal any focal deficits. SKIN: No rashes. Assessment and plan Chest pain Hypomagnesemia Hypertension Hyperlipidemia Monitor vital signs Monitor CBC Monitor CMP Continue telemetry monitoring Trend troponins Daily aspirin, Lipitor, Continue losartan Cardiology consulted Labs and medication were reviewed.. Continue same treatment. Continue with symptomatic treatment. Resume home medication. Monitor labs and vitals. DVT and GI prophylaxis. Further recommendations as per clinical course of the patient Past Medical History Past Medical History: Asthma, Cancer, GERD/Reflux, Hyperlipidemia, Hypertension, Skin Disorder, Thyroid Disorder Additional Past Medical History / Comment(s): Hx Heart murmur, seasonal asthma. Skin cancer melanoma. IBS, c/o increased GERD, constipation. Eczema. RSV History of Any Multi-Drug Resistant Organisms: None Reported Past Surgical History: Hysterectomy, Orthopedic Surgery, Tubal Ligation Additional Past Surgical History / Comment(s): Partial hysterectomy. Rt foot surg, has 1 screw. Colonoscopy, EGD. Past Anesthesia/Blood Transfusion Reactions: Motion Sickness Additional Past Anesthesia/Blood Transfusion Reaction / Comment(s): After TL throat swelled up, taken to X-ray. Motion sickness as child. Past Psychological History: Anxiety, Depression, Panic Disorder Smoking Status: Former smoker Past Alcohol Use History: None Reported Additional Past Alcohol Use History / Comment(s): Smoked socially 8-9 years, quit 2012. Past Drug Use History: Marijuana Additional Drug Use History / Comment(s): past use only - Past Family History Mother Sister(s) Family Medical History: Cancer Additional Family Medical History / Comment(s): breast cancer for both Medications and Allergies Home Medications Medication Instructions Recorded Confirmed Type Ergocalciferol [Vitamin D2 (1250 1,250 mcg PO MAYNARD 11/28/20 10/19/22 History Mcg = 13253 Iu)] Levothyroxine Sodium [Synthroid] 25 mcg PO DAILY 11/28/20 10/19/22 History Losartan [Cozaar] 25 mg PO BID 11/28/20 10/19/22 History Omeprazole [PriLOSEC] 20 mg PO BID 11/28/20 10/19/22 History buPROPion XL [Wellbutrin XL] 150 mg PO DAILY 11/28/20 10/19/22 History Ashwagandha Root Extract 500 mg PO BID 10/19/22 10/19/22 History [Ashwagandha] Atorvastatin [Lipitor] 40 mg PO HS 10/19/22 10/19/22 History Linaclotide [Linzess] 72 mcg PO DAILY PRN 10/19/22 10/19/22 History busPIRone HCL 15 mg PO BID 10/19/22 10/19/22 History Allergies Allergy/AdvReac Type Severity Reaction Status Date / Time minocycline Allergy Unknown Verified 10/19/22 17:53 duloxetine [From Cymbalta] AdvReac Confusion, Verified 10/19/22 17:52 elevated HR, couldn't sit up bandaids AdvReac "if on too Uncoded 10/19/22 17:52 long, will peel skin off" Physical Exam Vitals: Vital Signs Temp Pulse Pulse Resp BP BP Pulse Ox 10/20/22 07:00 98.0 F 60 16 124/66 99 10/20/22 01:32 66 18 10/20/22 00:24 97.7 F 66 18 113/71 97 10/19/22 21:52 66 18 10/19/22 19:48 70 18 160/85 98 10/19/22 19:20 97.8 F 66 16 147/72 97 10/19/22 16:56 84 18 174/82 98 10/19/22 16:41 98.5 F 84 18 152/69 100 Intake and Output 10/19/22 10/20/22 10/20/22 22:59 06:59 14:59 Other: # Voids 1 2 Weight 65.317 kg Results CBC & Chem 7: 10/19/22 17:13 10/19/22 17:13 Labs: Abnormal Lab Results - Last 24 Hours (Table) 10/19/22 Range/Units 17:13 Glucose 127 H (74-99) mg/dL Magnesium 1.5 L (1.6-2.3) mg/dL Total Bilirubin 1.6 H (0.2-1.3) mg/dL ALT 44 H (4-34) U/L Thrombosis Risk Factor Assmnt - Choose All That Apply Any of the Below Risk Factors Present?: Yes Each Factor Represents 1 point: Age 41-60 years, Obesity (BMI >25) Other Risk Factors: No Other congenital or acquired thrombophilia - If yes, enter type in comment: No Thrombosis Risk Factor Assessment Total Risk Factor Score: 2 Thrombosis Risk Factor Assessment Level: Low Risk
--- NOTE | 2022-10-20 14:07 | P.DS ---
Providers Date of admission: 10/19/22 18:57 Expected date of discharge: 10/20/22 Attending physician: Nancy Brannon Consults: 10/19/22 18:57 Consult Physician Urgent Consulting Provider: Domo Hall Consult Reason/Comments: cp Do you want consulting provider notified?: Yes Primary care physician: Stated None Hospital Course: Discharge diagnoses; Chest pain Hypomagnesemia Hypertension Hyperlipidemia Hospital course; patient is a 57-year-old lady with past medical history significant for hypothyroidism, hypertension, hyperlipidemia who presented to the ER because of chest pain. Patient stated that she has been having this on and off chest pain for months. Patient states just recently location, radiates to her back, not associated with any shortness of breath. Denies any aggravating or relieving factors associated with this chest pain. patient has seen outpatient cardiology for that and believes that stress test was done. Denies any swelling of feet. Denies any orthopnea or PND. no swelling of feet. because of this chest pain, patient came to the er Initial lab work done in the ER showed WBC 6.4, hemoglobin 13.5, platelet count 257, d-dimer 0.17, sodium 139, potassium 3.6, BUN 17, creatinine 0.63, total bilirubin 1.6, magnesium 1.5 Initial EKG done showed regular rate of 83, no significant depression or elevation, no T-wave inversion seen Chest x-ray done showed no acute cardiac process She admitted to medicine service 10/20. Cardiology evaluated the patient, patient troponin continue to be flat. Cardiology recommended keeping patient on current cardiac medications. Cleared the patient for discharge PHYSICAL EXAMINATION: GENERAL: The patient is alert and oriented x3, not in any acute distress. Well developed, well nourished. HEENT: Pupils are round and equally reacting to light. EOMI. No scleral icterus. No conjunctival pallor. Normocephalic, atraumatic. No pharyngeal erythema. No thyromegaly. CARDIOVASCULAR: S1 and S2 present. No murmurs, rubs, or gallops. PULMONARY: Chest is clear to auscultation, no wheezing or crackles. ABDOMEN: Soft, nontender, nondistended, normoactive bowel sounds. No palpable organomegaly. MUSCULOSKELETAL: No joint swelling or deformity. EXTREMITIES: No cyanosis, clubbing, or pedal edema. NEUROLOGICAL: Gross neurological examination did not reveal any focal deficits. SKIN: No rashes. Patient Condition at Discharge: Good Plan - Discharge Summary Discharge Rx Participant: No New Discharge Prescriptions: Continue Ergocalciferol [Vitamin D2 (1250 Mcg = 56779 Iu)] 1,250 mcg PO MAYNARD Linaclotide [Linzess] 72 mcg PO DAILY PRN PRN Reason: IBS busPIRone HCL 15 mg PO BID Ashwagandha Root Extract [Ashwagandha] 500 mg PO BID Omeprazole [PriLOSEC] 20 mg PO BID buPROPion XL [Wellbutrin XL] 150 mg PO DAILY Losartan [Cozaar] 25 mg PO BID Levothyroxine Sodium [Synthroid] 25 mcg PO DAILY Atorvastatin [Lipitor] 40 mg PO HS Discharge Medication List Ergocalciferol [Vitamin D2 (1250 Mcg = 81043 Iu)] 1,250 mcg PO MAYNARD 11/28/20 [History] Levothyroxine Sodium [Synthroid] 25 mcg PO DAILY 11/28/20 [History] Losartan [Cozaar] 25 mg PO BID 11/28/20 [History] Omeprazole [PriLOSEC] 20 mg PO BID 11/28/20 [History] buPROPion XL [Wellbutrin XL] 150 mg PO DAILY 11/28/20 [History] Ashwagandha Root Extract [Ashwagandha] 500 mg PO BID 10/19/22 [History] Atorvastatin [Lipitor] 40 mg PO HS 10/19/22 [History] Linaclotide [Linzess] 72 mcg PO DAILY PRN 10/19/22 [History] busPIRone HCL 15 mg PO BID 10/19/22 [History] Follow up Appointment(s)/Referral(s): None,Stated [Primary Care Provider] - 1-2 days Zane Arrington MD [STAFF PHYSICIAN] - 1 Week Discharge Disposition: HOME SELF-CARE
--- NOTE | 2022-10-20 15:12 | CA ---
Transthoracic Echo Report Name: Darryl Mattson Age: 57 Gender: F : 1965 Exam Date: 10/20/2022 08:49 Exam Location: [place] [facility] Ht (in): 68 Wt (lb): 144 Ordering Physician: Annette Cat Attending/Referring Phys: [id number], Stephania Template Checker Hodan Case [facility] Procedure CPT: Indications: Chest Pain Cardiac Hx: Technical Quality: Fair Contrast 1: Total Dose (mL): Contrast 2: Total Dose (mL): MEASUREMENTS (Male / Female) Normal Values 2D ECHO LV Diastolic Diameter PLAX 4.3 cm 4.2 - 5.9 / 3.9 - 5.3 cm LV Systolic Diameter PLAX 2.9 cm IVS Diastolic Thickness 0.7 cm 0.6 - 1.0 / 0.6 - 0.9 cm LVPW Diastolic Thickness 0.9 cm 0.6 - 1.0 / 0.6 - 0.9 cm LV Relative Wall Thickness 0.4 LVOT Diameter 2.0 cm M-MODE Aortic Root Diameter MM 2.4 cm LA Systolic Diameter MM 3.3 cm LA Ao Ratio MM 1.4 AV Cusp Separation MM 1.8 cm DOPPLER AV Peak Velocity 166.6 cm/s AV Peak Gradient 11.1 mmHg AV Mean Velocity 111.4 cm/s AV Mean Gradient 5.6 mmHg AV Velocity Time Integral 40.5 cm AI Peak Velocity 404.1 cm/s AI Peak Gradient 65.3 mmHg AI Pressure Half Time 615.9 ms LVOT Peak Velocity 138.3 cm/s LVOT Peak Gradient 7.7 mmHg LVOT Velocity Time Integral 34.3 cm LVOT Stroke Volume 103.4 cm??? LVOT Stroke Volume Index 58.2 ml/m??? LVOT Cardiac Index 3154.6 cm???/min???m??? AV Area Cont Eq vti 2.6 cm??? AV Area Cont Eq pk 2.5 cm??? Mitral E Point Velocity 109.6 cm/s Mitral A Point Velocity 83.7 cm/s Mitral E to A Ratio 1.3 MV Deceleration Time 195.9 ms LV E' Lateral Velocity 10.7 cm/s Mitral E to LV E' Lateral Ratio 10.3 LV E' Septal Velocity 8.7 cm/s Mitral E to LV E' Septal Ratio 12.6 TR Peak Velocity 173.2 cm/s TR Peak Gradient 12.0 mmHg Right Atrial Pressure 3.0 mmHg Pulmonary Artery Systolic Pressu 15.0 mmHg Right Ventricular Systolic Press 15.0 mmHg FINDINGS Left Ventricle Normal left ventricular size, wall thickness, systolic function with no obvious regional wall motion abnormalities. The ejection fraction is visually estimated at 55-60%. Right Ventricle The right ventricle is normal in size and function. Right Atrium The right atrium is normal in size. Left Atrium The left atrium is normal in size. Mitral Valve Structurally normal mitral valve without significant stenosis or prolapse. Mitral valve mildly thickened. There is trace mitral regurgitation. Aortic Valve Structurally normal aortic valve without significant sclerosis or stenosis. There is moderate aortic regurgitation. Tricuspid Valve Structurally normal tricuspid valve without significant stenosis. Mild tricuspid regurgitation. Pulmonic Valve Structurally normal pulmonic valve without significant stenosis. There is trace pulmonic regurgitation. Pericardium Normal pericardium without effusion. Aorta Normal aortic root dimension. CONCLUSIONS 1. Normal left ventricle size and systolic function 2. Moderate aortic regurgitation 3. Trace mitral and mild tricuspid regurgitation with no evidence of pulmonary hypertension Previewed by: Dr. Domo Hall MD (Electronically Signed) Final Date: 20 October 2022 15:11
[2022-10-21] MEDS ORDERED: ERGOCALCIFEROL 1,250 MCG (50,000 IU) CAPSULE PO SCH (09:00)
== END 2022-10-20 14:30 | disposition home or self-care (01) ==
LOC: EC 16:19 → 6NMEDSUR 18:57
PROVIDERS: ADMIT Hospitalist; ATTEND Hospitalist
DX: R07.89 Other chest pain (principal); E83.42 Hypomagnesemia; I08.3 Combined rheumatic disorders of mitral, aortic and tricuspid valves; J45.998 Other asthma; I10 Essential (primary) hypertension; E78.5 Hyperlipidemia, unspecified; E03.9 Hypothyroidism, unspecified; K21.9 Gastro-esophageal reflux disease without esophagitis; L30.9 Dermatitis, unspecified; K58.9 Irritable bowel syndrome, unspecified; F32.A Depression, unspecified; F41.0 Panic disorder [episodic paroxysmal anxiety]; R10.9 Unspecified abdominal pain; F41.9 Anxiety disorder, unspecified; Z79.890 Hormone replacement therapy; Z79.899 Other long term (current) drug therapy; Z88.1 Allergy status to other antibiotic agents; Z88.8 Allergy status to other drugs, medicaments and biological substances; Z85.820 Personal history of malignant melanoma of skin; Z90.711 Acquired absence of uterus with remaining cervical stump; Z98.890 Other specified postprocedural states; Z87.891 Personal history of nicotine dependence; Z86.19 Personal history of other infectious and parasitic diseases; Z98.51 Tubal ligation status; Z80.3 Family history of malignant neoplasm of breast
CPT/HCPCS: 96365; 96366; 96372; 99285; 36415; 94760; 93005; 93306; 85379; 83880; 80061; 80053; 82150; 83690; 83735 ×2; 84484; 85025; 85610; 85730; 71046; G0378 ×2; J3475; J1644

== ENCOUNTER → 2023-05-04 | Outpatient (CLI) | payer BC ==
[2023-05-04 13:10] LABS: HCT 42.2 % (37.2-46.3); HGB 13.8 g/dL (12.0-15.0); MCH 32.4 pg (27.0-32.0); MCHC 32.7 g/dL (32.0-37.0); MCV 99.1 FL (80.0-97.0); Mean Platelet Volume 8.8 FL (9.5-12.2); NRBC Per 100 WBC 0 X 10*3/uL (0.00-0.01); Platelet Count 232 X 10*3/uL (140-440); RBC 4.26 X 10*6/uL (4.10-5.20); RDW 11.7 % (11.5-14.5); WBC 4.14 X 10*3/uL (4.50-10.00)
[2023-05-04 13:51] LABS: Blood Urea Nitrogen 14.7 mg/dL (9.0-27.0); Carbon Dioxide 27.6 mmol/L (21.6-31.8); Chloride 105 mmol/L (96-109); Potassium 4.1 mmol/L (3.5-5.5); Sodium 141 mmol/L (135-145)
== END | disposition home or self-care (01) ==
LOC: LABWHC1 08:39
PROVIDERS: ATTEND Internal Medicine Interventional Cardiology
DX: Z01.818 Encounter for other preprocedural examination (principal); R07.9 Chest pain, unspecified
CPT/HCPCS: 36415; 80051; 82565; 84520; 85027

== ENCOUNTER → 2023-05-07 | Outpatient (CLI) | payer BC ==
--- NOTE | 2023-05-08 19:59 | MM ---
Reason for Exam: Screening (asymptomatic). Last screening mammogram was performed 12 month(s) ago. Patient History: Menarche at age 10. First Full-Term at age 18. Left ovary removed at age 50. Right ovary removed at age 50. Hysterectomy at age 50. Postmenopausal. Other cancer, age 40. Hormonal Contraceptives for 5 years from age 15 until age 22. Maternal aunt had breast cancer. Sister had breast cancer, age 30. Mother had breast cancer. Risk Values: Jolene 5 year model risk: 7.2%. NCI Lifetime model risk: 33.4%. Prior Study Comparison: 12/23/2019 Bilateral Screening Mammogram, [facility]. 01/13/2021 Bilateral Screening Mammogram, [facility]. 04/27/2022 Bilateral MG 3D screening mammo w/cad, [facility]. Tissue Density: The breast tissue is heterogeneously dense. This may lower the sensitivity of mammography. Findings: Analyzed By CAD. Subareolar nodularity left MLO view appears more defined. This may represent superimposition shadow but further evaluation is recommended. Otherwise, no significant change. Overall Assessment: Incomplete: need additional imaging evaluation, BI-RAD 0 Management: Special View Mammogram of the left breast. Diagnostic Breast Ultrasound of the left breast. Additional views left breast to include spot 3-D MLO and 3-D lateral views. Subsequently, entire left breast ultrasound given dense tissues and patient's risk scores. [facility] will attempt to contact patient to return for supplemental views and ultrasound if indicated. SEE NOTE BELOW IN REGARDS TO PATIENT'S INCREASED FIVE-YEAR JOLENE SCORE AND INCREASED LIFETIME RISK SCORE. Note on Jolene scores and lifetime risk: 1. A Jolene score greater than 3% is considered moderate risk. If this is the case, consider specialist referral to assess eligibility for a risk reducing agent. 2. If overall lifetime risk for the development of breast cancer is 20% or higher, the patient may qualify for future screening with alternating mammogram and breast MRI. Electronically signed and approved by: Maria Del Carmen Fiore M.D. Radiologist
== END | disposition home or self-care (01) ==
LOC: RADMAMWWP 13:58
PROVIDERS: ATTEND Family Medicine
DX: Z12.31 Encounter for screening mammogram for malignant neoplasm of breast (principal); Z80.3 Family history of malignant neoplasm of breast; Z78.0 Asymptomatic menopausal state
CPT/HCPCS: 77063; 77067

== ENCOUNTER 2023-05-09 05:57 | Day surgery (SDC) | payer BC ==
[2023-05-03 15:18] VITALS: BMI 20.5
[2023-05-09] MEDS ORDERED: NITROGLYCERIN SL TABS 0.4 MG TAB SUBLINGUAL PRN (05:58)
[2023-05-09] MEDS ORDERED: SODIUM CHLORIDE 0.9% 1,000 ML in EMPTY BAG 1 BAG IV SCH (05:58)
[2023-05-09] MEDS ORDERED: ALPRAZolam 0.5 MG TAB PO PRN (05:58)
[2023-05-09] MEDS ORDERED: ALPRAZolam 0.25 MG TAB PO PRN (05:58)
[2023-05-09] MEDS ORDERED: ASPIRIN 325 MG TAB PO ONE (07:00)
[2023-05-09] MEDS ORDERED: ATORVASTATIN 80 MG TAB PO ONE (07:00)
[2023-05-09] MEDS ORDERED: HEPARIN SODIUM,PORCINE 10,000 UNIT in SODIUM CHLORIDE 0.9% 1,000 ML IRRIGATION PRN (07:00)
[2023-05-09] MEDS ORDERED: HEPARIN SODIUM,PORCINE (1 ML) 2,500 UNIT in SODIUM CHLORIDE 0.9% 250 ML IRRIGATION PRN (07:00)
[2023-05-09 07:11] VITALS: RESP 18; TEMP 97.7
[2023-05-09] MEDS ORDERED: LIDOCAINE 1% INJ 10MG/ML (20 ML MDV) ONE (07:14)
[2023-05-09] MEDS ORDERED: HEPARIN SODIUM 1,000 UN/ML (10ML VL) ONE (07:15)
[2023-05-09] MEDS ORDERED: VERAPAMIL 2.5 MG/ML 2 ML AMP ONE (07:15)
[2023-05-09] MEDS ORDERED: VERAPAMIL SYRINGE (5 MG/10 ML) INTRAARTER ONE (07:53)
[2023-05-09] MEDS ORDERED: LIDOCAINE 1% INJ 10MG/ML (20 ML MDV) SQ ONE (07:54)
[2023-05-09] MEDS ORDERED: MIDAZOLAM 2 MG/2 ML VIAL IVP ONE (07:54)
[2023-05-09] MEDS ORDERED: HEPARIN SODIUM 1,000 UN/ML (10ML VL) IVP ONE (07:59)
[2023-05-09] MEDS ORDERED: IOPAMIDOL-370 100ML BTL INJ ONE (08:04)
[2023-05-09] MEDS ORDERED: RX INFO: IV CONTRAST WAS GIVEN 1 EACH MISC MISCELLANE PRN (08:08)
--- NOTE | 2023-05-09 08:11 | P.PCN ---
Date of Procedure: 05/09/23 Operative Findings: CARDIAC CATHETERIZATION PERFORMING PHYSICIAN: Zane Arrington MD, RPVI PROCEDURE PERFORMED: 1. Selective right and left coronary angiogram 2. Left heart catheterization 3. Ultrasound-guided access of the right radial artery INDICATION: Chest discomfort concerning for angina COMPLICATION: None APPROACH: Right radial artery LEVEL OF SEDATION: Moderate with a sedation length of 12 minutes PROCEDURE DESCRIPTION: After obtaining an informed consent, the patient was brought to cardiac pit laborer. Local anesthesia was performed using lidocaine subcutaneously. The right radial artery was cannulated using Seldinger technique, the guidewire passed easily, following that we advanced a 5-[place] sheath dilator assembly, the wire and dilator were removed and sheath was flushed. Following that, 2 mg of verapamil along with 3000 unit heparin were given. Selective right and left coronary angiogram using a 6-[place] JR4 and JL 3.5 catheters. Following that we did left heart catheterization using the JR4 catheter. The procedure was completed there was no complication. SELECTIVE CORONARY ANGIOGRAM: The right coronary artery: Large-caliber vessel and nondominant vessel and appeared to be normal Left main: Is angiographically normal The left circumflex: Large-caliber vessel and a dominant vessel. The ostial circumflex has mild disease only. Gives rise into a large OM branch which appeared to be normal and distally bifurcates into PDA and PLV branches both appears to be normal The left anterior descending artery: Large-caliber vessel. Its angiographically normal. It gives rise to multiple diagonal branches appears to be angiographically normal HEMODYNAMICS: The LVEDP was 12 mmHg was no significant gradient across aortic valve CONCLUSION: 1. Mild coronary artery disease 2. Normal left-sided filling pressure POSTPROCEDURE MANAGEMENT: Medical treatment
[2023-05-09] MEDS ORDERED: SODIUM CHLORIDE 0.9% 1,000 ML IV SCH (08:15)
[2023-05-09 11:18] VITALS: BP 87/49; PULSE 52
== END 2023-05-09 11:56 | disposition home or self-care (01) ==
LOC: CATHCVL 05:57
PROVIDERS: ATTEND Internal Medicine Interventional Cardiology
DX: I25.10 Atherosclerotic heart disease of native coronary artery without angina pectoris (principal); I10 Essential (primary) hypertension; E78.5 Hyperlipidemia, unspecified; F17.210 Nicotine dependence, cigarettes, uncomplicated; F12.90 Cannabis use, unspecified, uncomplicated; Z82.49 Family history of ischemic heart disease and other diseases of the circulatory system; Z79.899 Other long term (current) drug therapy
CPT/HCPCS: 93458; 76937; C1769; C1894; J2250; J2001; J1644; Q9967

== ENCOUNTER → 2023-05-14 | Outpatient (CLI) | payer BC ==
--- NOTE | 2023-05-16 09:16 | MM ---
Reason for Exam: Additional evaluation requested from abnormal screening. Last screening mammogram was performed less than 1 month ago. Patient History: Menarche at age 10. First Full-Term at age 18. Left ovary removed at age 50. Right ovary removed at age 50. Hysterectomy at age 50. Postmenopausal. Other cancer, age 40. Hormonal Contraceptives for 5 years from age 15 until age 22. Maternal aunt had breast cancer. Sister had breast cancer, age 30. Mother had breast cancer. Risk Values: Steffany 5 year model risk: 7.2%. NCI Lifetime model risk: 33.4%. Prior Study Comparison: 01/13/2021 Bilateral Screening Mammogram, [facility]. 04/27/2022 Bilateral MG 3D screening mammo w/cad, [facility]. 05/07/2023 Bilateral MG 3D screening mammo w/cad, [facility]. Tissue Density: Left: The breast tissue is heterogeneously dense. This may lower the sensitivity of mammography. Findings: Analyzed By CAD. No distinct mass or distortion. No suspicious calcifications. Overall Assessment: Benign, BI-RAD 2 Management: Screening Mammogram of both breasts in 1 year. . Results were given to the patient verbally at the time of exam. Patient should continue monthly self-breast exams. A clinical breast exam by your physician is recommended on an annual basis. This exam should not preclude additional follow-up of suspicious palpable abnormalities. Note on Steffany scores and lifetime risk: 1. A Steffany score greater than 3% is considered moderate risk. If this is the case, consider specialist referral to assess eligibility for a risk reducing agent. 2. If overall lifetime risk for the development of breast cancer is 20% or higher, the patient may qualify for future screening with alternating mammogram and breast MRI. Electronically signed and approved by: Otoniel Monroe M.D. Radiologis
== END | disposition home or self-care (01) ==
LOC: RADMAMWWP 13:51
PROVIDERS: ATTEND Family Medicine
DX: R92.332 Mammographic heterogeneous density, left breast (principal); Z80.3 Family history of malignant neoplasm of breast; Z78.0 Asymptomatic menopausal state
CPT/HCPCS: 77061; 77065

== ENCOUNTER 2023-06-27 00:12 | Emergency (ER) | payer BC ==
--- NOTE | 2023-06-27 00:33 | ED ---
Abdominal Pain HPI - General Chief Complaint: Abdominal Pain Stated Complaint: IBS abd pain Time Seen by Provider: 06/27/23 00:22 Source: patient Mode of arrival: ambulatory - History of Present Illness Initial Comments: 58-year-old female present with chief complaint of abdominal pain. Patient has history of IBS. She states that on Saturday she was experiencing some constipation, she took bisacodyl and then had diarrhea. 2 try to combat the diarrhea the patient took dicyclomine, states that since then she has had cramping abdominal pain. This has been ongoing since yesterday at 7 PM. She admits to some nausea, no vomiting. No hematochezia or melena. No dysuria, hematuria, flank pain. No fevers or chills. No chest pain or difficulty breathing. - Related Data Home Medications Medication Instructions Recorded Confirmed Ergocalciferol [Vitamin D2 (1250 1,250 mcg PO MAYNARD 11/28/20 05/09/23 Mcg = 88392 Iu)] Levothyroxine Sodium [Synthroid] 25 mcg PO DAILY 11/28/20 05/09/23 Losartan [Cozaar] 25 mg PO BID 11/28/20 05/09/23 Omeprazole [PriLOSEC] 20 mg PO BID 11/28/20 05/09/23 buPROPion XL [Wellbutrin XL] 150 mg PO DAILY 11/28/20 05/09/23 Atorvastatin [Lipitor] 40 mg PO HS 10/19/22 05/09/23 busPIRone HCL 15 mg PO BID 10/19/22 05/09/23 Clindamycin Phosphate [Cleocin T 1 applic TOPICAL BID 05/03/23 05/09/23 1%] Dicyclomine [Bentyl] 20 mg PO QID PRN 05/03/23 05/09/23 Fexofenadine HCl 180 mg PO DAILY 05/03/23 05/09/23 Hydrocortisone Cream 1 applic TOPICAL DAILY 05/03/23 05/09/23 [Hydrocortisone 2.5% Cream] Magnesium Citrate and Oxide 500 mg PO DAILY PRN 05/03/23 05/09/23 [Magnesium] Multivit with Calcium,Iron,Min 1 each PO DAILY 05/03/23 05/09/23 [Women's Multivitamin] fluorouraciL [Efudex] 1 applic TOPICAL BID 05/03/23 05/09/23 Aspirin 81 mg PO DAILY PRN 05/09/23 05/09/23 Allergies Allergy/AdvReac Type Severity Reaction Status Date / Time minocycline Allergy Unknown Verified 06/27/23 00:21 Childhood duloxetine [From Cymbalta] AdvReac Confusion, Verified 06/27/23 00:21 elevated HR, couldn't sit up bandaids AdvReac "if on too Uncoded 06/27/23 00:21 long, will peel skin off" Review of Systems ROS Statement: Those systems with pertinent positive or pertinent negative responses have been documented in the HPI. ROS Other: All systems not noted in ROS Statement are negative. Past Medical History Past Medical History: Asthma, Cancer, GERD/Reflux, Hyperlipidemia, Hypertension, Skin Disorder, Thyroid Disorder Additional Past Medical History / Comment(s): Hx Heart murmur, seasonal asthma. Skin cancer melanoma. IBS, c/o increased GERD, constipation. Eczema. RSV History of Any Multi-Drug Resistant Organisms: None Reported Past Surgical History: Hysterectomy, Orthopedic Surgery, Tubal Ligation Additional Past Surgical History / Comment(s): Partial hysterectomy. Rt foot surg, has 1 screw. Colonoscopy, EGD. Past Anesthesia/Blood Transfusion Reactions: Motion Sickness Additional Past Anesthesia/Blood Transfusion Reaction / Comment(s): After TL throat swelled up, taken to X-ray. Motion sickness as child. Past Psychological History: Anxiety, Depression, Panic Disorder Smoking Status: Former smoker Past Alcohol Use History: None Reported Past Drug Use History: None Reported - Past Family History Mother Sister(s) Family Medical History: Cancer Additional Family Medical History / Comment(s): breast cancer for both General Exam Limitations: no limitations General appearance: alert, in no apparent distress Head exam: Present: atraumatic, normocephalic Eye exam: Present: normal appearance Neck exam: Present: normal inspection Respiratory exam: Present: normal lung sounds bilaterally. Absent: respiratory distress, wheezes, rales, rhonchi, stridor Cardiovascular Exam: Present: regular rate, normal rhythm, normal heart sounds. Absent: systolic murmur, diastolic murmur, rubs, gallop, clicks GI/Abdominal exam: Present: soft, tenderness. Absent: distended, guarding, rebound, rigid Neurological exam: Present: alert, oriented X3 Psychiatric exam: Present: normal affect, normal mood Skin exam: Present: warm, dry Course Vital Signs 06/27/23 06/27/23 06/27/23 00:18 01:30 02:58 Temperature 98.0 F 97.8 F Pulse Rate 90 78 65 Respiratory 18 18 16 Rate Blood Pressure 148/80 122/63 120/55 O2 Sat by Pulse 100 99 100 Oximetry Medical Decision Making - Medical Decision Making Was pt. sent in by a medical professional or institution (, PA, ACID SPLICER, urgent care, hospital, or [facility]...) When possible be specific @ -No Did you speak to anyone other than the patient for history (EMS, parent, family, police, friend...)? What history was obtained from this source @ -No Did you review nursing and triage notes (agree or disagree)? Why? @ -I reviewed and agree with nursing and triage notes Were old charts reviewed (outside hosp., previous admission, EMS record, old EKG, old radiological studies, urgent care reports/EKG's, ch[facility] records)? Report findings @ -No old charts were reviewed Differential Diagnosis (chest pain, altered mental status, abdominal pain women, abdominal pain men, vaginal bleeding, weakness, fever, dyspnea, syncope, headache, dizziness, GI bleed, back pain, seizure, CVA, palpatations, mental health, musculoskeletal)? @ -MDM Differential Abdominal Pain Women: Appendicitis, Cholecystitis, diverticulosis, ischemic bowel, pancreatitis, hepatitis, UTI, gastroenteritis, AAA, incarcerated hernia, bowel obstruction, constipation, inflammatory bowel, hepatitis, peptic ulcer disease, splenic infarction, perforated viscus, vulvitis, ovarian torsion, PID, kidney stone, p lacenta abruption... This is not meant to be an all-inclusive list EKG interpreted by me (3pts min.). @ -As above X-rays interpreted by me (1pt min.). @ -None done CT interpreted by me (1pt min.). @ -CT shows no acute findings in the abdomen or pelvis U/S interpreted by me (1pt. min.). @ -None done What testing was considered but not performed or refused? (CT, X-rays, U/S, labs)? Why? @ -None What meds were considered but not given or refused? Why? @ -None Did you discuss the management of the patient with other professionals (professionals i.e. , PA, ACID SPLICER, lab, RT, psych nurse, 7th grade social studies teacher, vice president education, teacher, police officer, case technician)? Give summary @ -No Was smoking cessation discussed for >3mins.? @ -No Was critical care preformed (if so, how long)? @ -No Were there social determinants of health that impacted care today? How? (Homelessness, low income, unemployed, alcoholism, drug addiction, transportation, low edu. Level, literacy, decrease access to med. care, halfway, rehab)? @ -No Was there de-escalation of care discussed even if they declined (Discuss DNR or withdrawal of care, Hospice)? DNR status @ -No What co-morbidities impacted this encounter? (DM, HTN, Smoking, COPD, CAD, Cancer, CVA, ARF, Chemo, Hep., AIDS, mental health diagnosis, sleep apnea, morbid obesity)? @ -None Was patient admitted / discharged? Hospital course, mention meds given and route, prescriptions, significant lab abnormalities, going to OR and other pertinent info. @ -58-year-old female presenting with chief complaint of abdominal pain. Patient was having constipation and took a laxative, she then later took Bentyl. She has been having lower abdominal cramping since yesterday. On exam she is tender. She is given pain and nausea medication and IV fluids. Lab work shows no leukocytosis or anemia. CT of the abdomen pelvis shows no acute findings. On reassessment the patient reports that her symptoms have been completely alleviated. Initial glucose of 70, patient was given orange juice and on reassessment glucose is 118. Patient is having no urinary symptoms, I offered to perform a urinalysis but the patient declined and would like to go home. I believe this is reasonable. Discharged. Follow-up with PCP. Report back to ER with any new or worsening symptoms. Discussed return parameters and answered all questions. Patient conveyed verbal understanding and agreed to the plan. I discussed this case in detail with my attending Dr. Eldridge Undiagnosed new problem with uncertain prognosis? @ -No Drug Therapy requiring intensive monitoring for toxicity (Heparin, Nitro, Insulin, Cardizem)? @ -No Were any procedures done? @ -No Diagnosis/symptom? @ -Abdominal pain Acute, or Chronic, or Acute on Chronic? @ -Acute Uncomplicated (without systemic symptoms) or Complicated (systemic symptoms)? @ -Uncomplicated Side effects of treatment? @ -No Exacerbation, Progression, or Severe Exacerbation? @ -No Poses a threat to life or bodily function? How? (Chest pain, USA, VT, pneumonia, PE, COPD, DKA, ARF, appy, cholecystitis, CVA, Diverticulitis, Homicidal, Suicidal, threat to staff... and all critical care pts) @ -Unlikely Diagnosis/symptom? @IBS Acute, or Chronic, or Acute on Chronic? @Acute on chronic Uncomplicated (without systemic symptoms) or Complicated (systemic symptoms)? @Uncomplicated Side effects of treatment? @None Exacerbation, Progression, or Severe Exacerbation] @No Poses a threat to life or bodily function? @No - Lab Data Result diagrams: 06/27/23 00:46 06/27/23 00:46 Lab Results 06/27/23 06/27/23 06/27/23 Range/Units 00:46 00:46 00:46 WBC 4.6 (3.8-10.6) k/uL RBC 4.37 (3.80-5.40) m/uL Hgb 14.9 (11.4-16.0) gm/dL Hct 41.8 (34.0-46.0) % MCV 95.6 (80.0-100.0) fL MCH 34.1 (25.0-35.0) pg MCHC 35.6 (31.0-37.0) g/dL RDW 12.2 (11.5-15.5) % Plt Count 212 (150-450) k/uL MPV 7.4 Neutrophils % 36 % Lymphocytes % 51 % Monocytes % 4 % Eosinophils % 4 % Basophils % 1 % Neutrophils # 1.6 (1.3-7.7) k/uL Lymphocytes # 2.3 (1.0-4.8) k/uL Monocytes # 0.2 (0-1.0) k/uL Eosinophils # 0.2 (0-0.7) k/uL Basophils # 0.1 (0-0.2) k/uL Sodium 140 (137-145) mmol/L Potassium 3.7 (3.5-5.1) mmol/L Chloride 109 H (98-107) mmol/L Carbon Dioxide 25 (22-30) mmol/L Anion Gap 6 mmol/L BUN 13 (7-17) mg/dL Creatinine 0.62 (0.52-1.04) mg/dL Est GFR (CKD-EPI)AfAm >90 (>60 ml/min/1.73 sqM) Est GFR (CKD-EPI)NonAf >90 (>60 ml/min/1.73 sqM) Glucose 70 L (74-99) mg/dL POC Glucose (mg/dL) (70-110) mg/dL POC Glu Brine Tank Tender ID Plasma Lactic Acid Lewis 0.9 (0.7-2.0) mmol/L Calcium 9.5 (8.4-10.2) mg/dL Total Bilirubin 2.0 H (0.2-1.3) mg/dL AST 29 (14-36) U/L ALT 43 H (4-34) U/L Alkaline Phosphatase 76 (38-126) U/L Total Protein 7.1 (6.3-8.2) g/dL Albumin 4.4 (3.5-5.0) g/dL Amylase 67 (30-110) U/L Lipase 50 (23-300) U/L / Range/Units 02:31 WBC (3.8-10.6) k/uL RBC (3.80-5.40) m/uL Hgb (11.4-16.0) gm/dL Hct (34.0-46.0) % MCV (80.0-100.0) fL MCH (25.0-35.0) pg MCHC (31.0-37.0) g/dL RDW (11.5-15.5) % Plt Count (150-450) k/uL MPV Neutrophils % % Lymphocytes % % Monocytes % % Eosinophils % % Basophils % % Neutrophils # (1.3-7.7) k/uL Lymphocytes # (1.0-4.8) k/uL Monocytes # (0-1.0) k/uL Eosinophils # (0-0.7) k/uL Basophils # (0-0.2) k/uL Sodium (137-145) mmol/L Potassium (3.5-5.1) mmol/L Chloride (98-107) mmol/L Carbon Dioxide (22-30) mmol/L Anion Gap mmol/L BUN (7-17) mg/dL Creatinine (0.52-1.04) mg/dL Est GFR (CKD-EPI)AfAm (>60 ml/min/1.73 sqM) Est GFR (CKD-EPI)NonAf (>60 ml/min/1.73 sqM) Glucose (74-99) mg/dL POC Glucose (mg/dL) 118 H (70-110) mg/dL POC Glu Brine Tank Tender ID Ryan Mcfadden Plasma Lactic Acid Lewis (0.7-2.0) mmol/L Calcium (8.4-10.2) mg/dL Total Bilirubin (0.2-1.3) mg/dL AST (14-36) U/L ALT (4-34) U/L Alkaline Phosphatase (38-126) U/L Total Protein (6.3-8.2) g/dL Albumin (3.5-5.0) g/dL Amylase (30-110) U/L Lipase (23-300) U/L Disposition Clinical Impression: Abdominal pain, IBS (irritable bowel syndrome) Disposition: HOME SELF-CARE Condition: Good Instructions (If sedation given, give patient instructions): Irritable Bowel Syndrome (ED), Abdominal Pain (ED) Additional Instructions: Follow-up with PCP. Report back to ER with any new or worsening symptoms. Is patient prescribed a controlled substance at d/c from ED?: No Referrals: Karen Fleming MD [Primary Care Provider] - 1-2 days Time of Disposition: 02:48
[2023-06-27] MEDS: MORPHINE SULFATE 4 MG/ML SYRINGE IVP STA (00:58)
[2023-06-27] MEDS: SODIUM CHLORIDE 0.9% 1,000 ML IV STA (00:58)
[2023-06-27] MEDS: ONDANSETRON 4 MG/2 ML VIAL IVP STA (00:59)
[2023-06-27] MEDS: KETOROLAC 15 MG/ML 1 ML VIAL IVP STA (00:59)
[2023-06-27 01:02] LABS: Basophils # (A) 0.1 k/uL (0-0.2); Basophils % (A) 1 %; Eosinophils # (A) 0.2 k/uL (0-0.7); Eosinophils % (A) 4 %; HCT 41.8 % (34.0-46.0); HGB 14.9 gm/dL (11.4-16.0); Lymphocytes # (A) 2.3 k/uL (1.0-4.8); Lymphocytes % (A) 51 %; MCH 34.1 pg (25.0-35.0); MCHC 35.6 g/dL (31.0-37.0); MCV 95.6 fL (80.0-100.0); Mean Platelet Volume 7.4; Monocytes # (A) 0.2 k/uL (0-1.0); Monocytes % (A) 4 %; Neutrophils # (A) 1.6 k/uL (1.3-7.7); Neutrophils % (A) 36 %; Platelet Count 212 k/uL (150-450); RBC 4.37 m/uL (3.80-5.40); RDW 12.2 % (11.5-15.5); WBC 4.6 k/uL (3.8-10.6)
[2023-06-27 01:32] LABS: ALT 43 U/L (4-34); AST 29 U/L (14-36); African American GFR (CKD) >90 (>60 ml/min/1.73 sqM); Albumin 4.4 g/dL (3.5-5.0); Alkaline Phosphatase 76 U/L (38-126); Amylase 67 U/L (30-110); Anion Gap 6 mmol/L; Blood Urea Nitrogen 13 mg/dL (7-17); Calcium 9.5 mg/dL (8.4-10.2); Carbon Dioxide 25 mmol/L (22-30); Chloride 109 mmol/L (98-107); Glucose 70 mg/dL (74-99); Lipase 50 U/L (23-300); Non-African American GFR(CKD) >90 (>60 ml/min/1.73 sqM); Potassium 3.7 mmol/L (3.5-5.1); Sodium 140 mmol/L (137-145); Total Protein 7.1 g/dL (6.3-8.2)
--- NOTE | 2023-06-27 02:31 | CT ---
EXAM: CT Abdomen and Pelvis With Intravenous Contrast CLINICAL HISTORY: ITS.REASON CT Reason: abdominal pain TECHNIQUE: Axial computed tomography images of the abdomen and pelvis with intravenous contrast. CTDI is 12.6 mGy and DLP is 559.7 mGy-cm. This CT exam was performed using one or more of the following dose reduction techniques: automated exposure control, adjustment of the mA and/or kV according to patient size, and/or use of iterative reconstruction technique. COMPARISON: No relevant prior studies available. FINDINGS: Lung bases: Unremarkable. No mass. No consolidation. ABDOMEN: Liver: Unremarkable. No mass. Gallbladder and bile ducts: Unremarkable. No calcified stones. No ductal dilation. Pancreas: Unremarkable. No mass. No ductal dilation. Spleen: Unremarkable. No splenomegaly. Adrenals: Unremarkable. No mass. Kidneys and ureters: Unremarkable. No solid mass. No hydronephrosis. Stomach and bowel: Unremarkable. No obstruction. No mucosal thickening. PELVIS: Appendix: No findings to suggest acute appendicitis. Bladder: Unremarkable. No mass. Reproductive: Unremarkable as visualized. ABDOMEN and PELVIS: Intraperitoneal space: Unremarkable. No free air. No significant fluid collection. Bones/joints: Degenerative changes of the spine. No acute fracture. No dislocation. Soft tissues: Unremarkable. Vasculature: Atherosclerotic changes of the aorta. No abdominal aortic aneurysm. Lymph nodes: Unremarkable. No enlarged lymph nodes. IMPRESSION: No acute findings in the abdomen or pelvis.
[2023-06-27 02:33] LABS: Glucose,Whole Blood 118 mg/dL (70-110)
[2023-06-27 03:30] VITALS: BP 120/55; PULSE 65; RESP 16; TEMP 97.8
== END 2023-06-27 03:01 | disposition home or self-care (01) ==
LOC: EC 00:12
DX: K58.9 Irritable bowel syndrome, unspecified (principal)
CPT/HCPCS: 36415; 80053; 82150; 83605; 83690; 85025; 74177; 99284; 96374; 96375 ×2; 96361; J2270; J2405; J1885; Q9967

== ENCOUNTER → 2024-08-07 | Outpatient (CLI) | payer BC ==
--- NOTE | 2024-08-07 15:26 | MM ---
Reason for Exam: Screening (asymptomatic). Last mammogram was performed 1 year(s) and 4 month(s) ago. Patient History: Menarche at age 10. First Full-Term at age 18. Left ovary removed at age 50. Right ovary removed at age 50. Hysterectomy at age 50. Postmenopausal. Other cancer, age 40. Hormonal Contraceptives for 5 years from age 15 until age 22. Maternal aunt had breast cancer, age 55. Sister had breast cancer, age 30. Mother had breast cancer, age 54. Risk Values: Steffany 5 year model risk: 7.5%. NCI Lifetime model risk: 32.8%. Prior Study Comparison: 04/27/2022 Bilateral MG 3D screening mammo w/cad, [facility]. 05/07/2023 Bilateral MG 3D screening mammo w/cad, [facility]. 05/14/2023 Left MG 3D work up w/cad , [facility]. Tissue Density: The breasts are heterogeneously dense, which may obscure small masses. Findings: Analyzed By CAD. There are few benign-appearing round calcifications bilaterally redemonstrated. Benign-appearing Vascular calcification in the left breast is again seen. There is no suspicious group of microcalcifications or new suspicious mass in either breast. Overall Assessment: Benign, BI-RAD 2 Management: Screening Mammogram of both breasts in 1 year. . Patient should continue monthly self-breast exams. A clinical breast exam by your physician is recommended on an annual basis. This exam should not preclude additional follow-up of suspicious palpable abnormalities. Note on Steffany scores and lifetime risk: 1. A Steffany score greater than 3% is considered moderate risk. If this is the case, consider specialist referral to assess eligibility for a risk reducing agent. 2. If overall lifetime risk for the development of breast cancer is 20% or higher, the patient may qualify for future screening with alternating mammogram and breast MRI. [facility], , 08/07/2024 3:22 PM. Electronically signed and approved by: Jace Hurd M.D.
--- NOTE | 2024-08-07 15:34 | BD ---
EXAMINATION TYPE: Axial Bone Density DATE OF EXAM: 08/07/2024 CLINICAL HISTORY: 59 years old Female. ICD-10 CODE: Z78.0 [place] , Additional History: Height: Weight: FRAX RISK QUESTIONS: Alcohol (3 or more units per day): no Family History (Parent hip fracture): yes Glucocorticoids (More than 3mos): no (Ex: prednisone, prednisolone, methylprednisolone, dexamethasone, and hydrocortisone). History of Fracture in Adulthood: yes Secondary Osteoporosis: 1. Type 1 Diabetes: no 2. Hyperthyroidism: no 3. Menopause before 45: no 4. Malnutrition: no 5. Chronic liver disease: no Rheumatoid Arthritis: no Current Tobacco Use: no RISK FACTORS HISTORY OF: Surgery to Spine/Hip(right/left)/Wrist (right/left): no MEDICATIONS: Thyroid Medications: levothyroxine How Lon years ago EXAM MEASUREMENTS: Bone mineral densitometry was performed using the [employer] System. Bone mineral density as measured about the Lumbar spine is: ----- L1-L4(G/cm2): 1.011 T Score Values are as follows: ----- L1: -1.0 ----- L2: -1.3 ----- L3: -1.5 ----- L4: -1.8 ----- L1-L4: -1.4 Z Score Values are as follows: ----- L1: 0.1 ----- L2: -0.1 ----- L3: -0.4 ----- L4: -0.7 ----- L1-L4: -0.3 Bone mineral density has: decreased -12.0 % since study of: 12.23.2019 Bone mineral density about the R hip (g/cm2): 0.796 Bone mineral density about the L hip (g/cm2): 0.723 T Score values are as follows: -----R Neck: -2.2 -----L Neck: -2.2 -----R Total: -1.7 -----L Total: -2.3 Z Score values are as follows: -----R Neck: -1.0 -----L Neck: -1.0 -----R Total: -0.8 -----L Total: -1.4 Bone mineral density has: decreased -13.6 % since study of: 12.23.2019 FRAX%s: The graph provided illustrates a 17.7% chance for a major osteoporotic fx and a 3.0% chance f or the hips probability for fx in 10 years time. IMPRESSION: Osteopenia (T Score between -2.5 and -1) remains present. There remains slightly increased risk of fracture and the patient may be considered for treatment. Re-Screen 2-5 years. NOTE: T-SCORE=SD OF THE YOUNG ADULT MEAN. [facility], , 08/07/2024 3:32 PM
== END | disposition home or self-care (01) ==
LOC: RADMAMWWP 14:37
PROVIDERS: ATTEND Family Medicine
DX: Z12.31 Encounter for screening mammogram for malignant neoplasm of breast (principal); R92.333 Mammographic heterogeneous density, bilateral breasts; M85.89 Other specified disorders of bone density and structure, multiple sites; Z80.3 Family history of malignant neoplasm of breast; Z78.0 Asymptomatic menopausal state
CPT/HCPCS: 77063; 77067; 77080